=== PATIENT | female | born 2000 | race Caucasian/White ===

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

== ENCOUNTER 2018-01-16 19:03 | Emergency (ER) | payer OTHER ==
[2018-01-16] MEDS ORDERED: CEPHALEXIN 250 MG CAP ONE (19:52)
[2018-01-16] MEDS ORDERED: SMZ./TMP. 800/160 MG TABLET ONE (19:53)
[2018-01-16] MEDS ORDERED: TETANUS & DIPHTHERIA TOX,ADULT 0.5 ML VIAL ONE (19:53)
--- NOTE | 2018-01-16 20:24 | RAD REPORT ---
EXAM DESCRIPTION: RAD - Knee Right 3 View - 01/16/2018 8:09 pm CLINICAL HISTORY: PAIN COMPARISON: None FINDINGS: No bone or joint abnormality is detected.
--- NOTE | 2018-01-17 20:46 | EDPHYS ---
Physician Documentation [facility] Name: Awa Walker Age: 17 yrs Sex: Female : 2000 Arrival Date: 01/16/2018 Time: 19:08 Bed 14 Private MD: ED Physician Jaiden Mccoy HPI: 01/16 19:39 This 17 yrs old Female presents to ER via Ambulatory with complaints of Knee snw Injury. 19:39 The patient presents with an abrasion, a contusion, pain. The complaints affect the snw right knee. Context: The problem was sustained at home, resulted from the patient falling, down stairs, the patient can partially bear weight, the patient is able to ambulate. Onset: The symptoms/episode began/occurred suddenly, yesterday. Associated signs and symptoms: The patient has no apparent associated signs or symptoms. Severity of symptoms: At their worst the symptoms were moderate. The patient has not experienced similar symptoms in the past. It is unknown whether or not the patient has recently seen a physician. 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 - Social history:: Smoking status: Patient/guardian denies using tobacco. - Ebola Screening: : Patient negative for fever greater than or equal to 101.5 degrees Fahrenheit, and additional compatible Ebola Virus Disease symptoms Patient denies exposure to infectious person Patient denies travel to an Ebola-affected area in the 21 days before illness onset No symptoms or risks identified at this time. ROS: 19:38 Constitutional: Negative for fever, chills, and weight loss, Eyes: Negative for injury, snw pain, redness, and discharge, ENT: Negative for injury, pain, and discharge, Neck: Negative for injury, pain, and swelling, Cardiovascular: Negative for chest pain, palpitations, and edema, Respiratory: Negative for shortness of breath, cough, wheezing, and pleuritic chest pain, Abdomen/GI: Negative for abdominal pain, nausea, vomiting, diarrhea, and constipation, Back: Negative for injury and pain, : Negative for injury, bleeding, discharge, and swelling, Neuro: Negative for headache, weakness, numbness, tingling, and seizure. 19:38 MS/extremity: Positive for injury or acute deformity, abrasion, contusion, of the right knee. 19:38 Skin: Positive for abrasion(s), of the right knee. Exam: 19:37 Constitutional: This is a well developed, well nourished patient who is awake, alert, snw and in no acute distress. Head/Face: Normocephalic, atraumatic. Eyes: Pupils equal round and reactive to light, extra-ocular motions intact. Lids and lashes normal. Conjunctiva and sclera are non-icteric and not injected. Cornea within normal limits. Periorbital areas with no swelling, redness, or edema. ENT: Nares patent. No nasal discharge, no septal abnormalities noted. Tympanic membranes are normal and external auditory canals are clear. Oropharynx with no redness, swelling, or masses, exudates, or evidence of obstruction, uvula midline. Mucous membranes moist. Neck: Trachea midline, no thyromegaly or masses palpated, and no cervical lymphadenopathy. Supple, full range of motion without nuchal rigidity, or vertebral point tenderness. No Meningismus. Chest/axilla: Normal chest wall appearance and motion. Nontender with no deformity. No lesions are appreciated. Cardiovascular: Regular rate and rhythm with a normal S1 and S2. No gallops, murmurs, or rubs. Normal PMI, no JVD. No pulse deficits. Respiratory: Lungs have equal breath sounds bilaterally, clear to auscultation and percussion. No rales, rhonchi or wheezes noted. No increased work of breathing, no retractions or nasal flaring. Abdomen/GI: Soft, non-tender, with normal bowel sounds. No distension or tympany. No guarding or rebound. No evidence of tenderness throughout. Back: No spinal tenderness. No costovertebral tenderness. Full range of motion. Neuro: Awake and alert, GCS 15, oriented to person, place, time, and situation. Cranial nerves II-XII grossly intact. Motor strength 5/5 in all extremities. Sensory grossly intact. Cerebellar exam normal. Normal gait. Psych: Awake, alert, with orientation to person, place and time. Behavior, mood, and affect are within normal limits. 19:37 Musculoskeletal/extremity: Extremities: grossly normal except: noted in the right knee: abrasion, contusion, ROM: no acute changes, Severe pain noted. Compartment Syndrome exam of affected extremity: is normal. Vital Signs: 19:11 BP 139 / 82; Pulse 112; Resp 20; Temp 98.4; Pulse Ox 97% on R/A; Weight 78.02 kg; aj Height 5 ft. 4 in. (162.56 cm); 20:24 BP 120 / 72; Pulse 103; Resp 16; Pulse Ox 99% on R/A; aa1 19:11 Body Mass Index 29.52 (78.02 kg, 162.56 cm) aj MDM: 19:15 Patient medically screened. snw 20:36 Data reviewed: vital signs, nurses notes. Data interpreted: Pulse oximetry: on room air snw is 99 %. Interpretation: normal. Counseling: I had a detailed discussion with the patient and/or guardian regarding: the historical points, exam findings, and any diagnostic results supporting the discharge/admit diagnosis, radiology results, the need for outpatient follow up, to return to the emergency department if symptoms worsen or persist or if there are any questions or concerns that arise at home. Special discussion: I discussed in detail with the patient the higher chance of wound infection based on his presenting history. Based on the history and exam findings, there is no indication for further emergent testing or inpatient evaluation. I discussed with the patient/guardian the need to see the primary care provider for further evaluation of the symptoms. Medical screen evaluation completed. [facility] emergency medical condition absent. 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 Exp: aa1 03/10/2020. Lot #: [id number]. } Route: IM; Site: right deltoid; 20:44 Follow up: Response: No adverse reaction aa1 19:55 Drug: Bactrim (160 mg-800 mg (DS) 1 tablet Route: PO; aa1 20:44 Follow up: Response: No adverse reaction aa1 19:55 Drug: KeFLEX 500 mg Route: PO; aa1 20:43 Follow up: Response: No adverse reaction aa1 Disposition: 01/16/18 20:35 Discharged to Home. Impression: Abrasion, right knee, Cellulitis of right lower limb. - Condition is Stable. - Discharge Instructions: Abrasion, Cellulitis, Adult, Fall Prevention in the Home, Heat Therapy. - Prescriptions for Keflex 500 mg Oral Capsule - take 1 capsule by ORAL route every 8 hours for 10 days; 30 capsule. Diclofenac Sodium 75 mg Oral Tablet Sustained Release - take 1 tablet by ORAL route 2 times per day; 30 tablet. Bactrim DS 800- 160 mg Oral Tablet - take 1 tablet by ORAL route every 12 hours for 10 days; 20 tablet. - Work release form, Medication Reconciliation Form, Thank You Letter, Antibiotic Education, Prescription Opioid Use form. - Follow up: Emergency Department; When: As needed; Reason: Worsening of condition. Follow up: Private Physician; When: 2 - 3 days; Reason: Recheck today's complaints, Continuance of care, Re-evaluation by your physician. Addendum: 01/18/2018 10:22 Co-signature as Attending Physician, Jaiden Mccoy MD I agree with the assessment and c narvaez plan of care. Signatures: Dispatcher [employer] Angela Hernandez RN RN aa1 Eleni Burrell RN RN aj Anderson, Corey, MD MD cha Therrien, Shelly, CORRESPONDENCE TRANSCRIBER-C CORRESPONDENCE TRANSCRIBER-Csnw Corrections: (The following items were deleted from the chart) 01/16 20:46 20:35 01/16/2018 20:35 Discharged to Home. Impression: Abrasion, right knee; Cellulitis aa1 of right lower limb. Condition is Stable. Forms are Medication Reconciliation Form, Thank You Letter, Antibiotic Education, Prescription Opioid Use. Follow up: Emergency Department; When: As needed; Reason: Worsening of condition. Follow up: Private Physician; When: 2 - 3 days; Reason: Recheck today's complaints, Continuance of care, Re-evaluation by your physician. snw
--- NOTE | 2018-01-17 20:46 | ER ---
Nurse's Notes [facility] Name: Awa Walker Age: 17 yrs Sex: Female : 2000 Arrival Date: 01/16/2018 Time: 19:08 Bed 14 Private MD: Diagnosis: Abrasion, right knee;Cellulitis of right lower limb Presentation: 01/16 19:10 Presenting complaint: Patient states: Fell and skinned right knee last night on wooden aj stairs. Transition of care: patient was not received from another setting of care. Onset of symptoms was January 15, 2018. Risk Assessment: Do you want to hurt yourself or someone else? Patient reports no desire to harm self or others. Initial Sepsis Screen: Does the patient meet any 2 criteria? No. Patient's initial sepsis screen is negative. Does the patient have a suspected source of infection? No. Patient's initial sepsis screen is negative. Care prior to arrival: None. 19:10 Method Of Arrival: Ambulatory aj 19:10 Acuity: JILLIAN 4 aj Triage Assessment: 19:11 General: Appears in no apparent distress. comfortable, Behavior is calm, cooperative, aj appropriate for age. Pain: Complains of pain in right knee. Neuro: Level of Consciousness is awake, alert, obeys commands, Oriented to person, place, time, situation, Appropriate for age. Respiratory: Airway is patent Respiratory effort is even, unlabored, Respiratory pattern is regular, symmetrical. Derm: Skin is intact, is healthy with good turgor, Skin is pink, warm \T\ dry. normal. Musculoskeletal: Circulation, motion, and sensation intact. Range of motion: intact in all extremities. Injury Description: Abrasion sustained to right knee. 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 - Social history:: Smoking status: Patient/guardian denies using tobacco. - Ebola Screening: : Patient negative for fever greater than or equal to 101.5 degrees Fahrenheit, and additional compatible Ebola Virus Disease symptoms Patient denies exposure to infectious person Patient denies travel to an Ebola-affected area in the 21 days before illness onset No symptoms or risks identified at this time. Screenin:30 Abuse screen: Denies threats or abuse. Denies injuries from another. Nutritional aa1 screening: No deficits noted. Tuberculosis screening: No symptoms or risk factors identified. Fall Risk None identified. Assessment: 19:30 General: Appears in no apparent distress. comfortable, Behavior is calm, cooperative, aa1 appropriate for age. Pain: Complains of pain in right knee. Neuro: Level of Consciousness is awake, alert, obeys commands, Oriented to person, place, time, situation, Gait is steady. Respiratory: Airway is patent Respiratory effort is even, unlabored, Respiratory pattern is regular, symmetrical. GI: No signs and/or symptoms were reported involving the gastrointestinal system. : No signs and/or symptoms were reported regarding the genitourinary system. EENT: No signs and/or symptoms were reported regarding the EENT system. Derm: Skin is intact, is healthy with good turgor, Skin is pink, warm \T\ dry. Musculoskeletal: Circulation, motion, and sensation intact. Capillary refill < 3 seconds, Range of motion: intact in all extremities. Injury Description: Abrasion sustained to right knee is scabbed, was sustained 12-24 hours ago. 20:24 Reassessment: Patient appears in no apparent distress at this time. Patient and/or aa1 family updated on plan of care and expected duration. Pain level reassessed. Patient is alert, oriented x 3, equal unlabored respirations, skin warm/dry/pink. Awaiting xray results. 20:45 Reassessment: Patient appears in no apparent distress at this time. Patient is alert, aa1 oriented x 3, equal unlabored respirations, skin warm/dry/pink. Discussed d/c \T\ f/u instructions with pt; denies questions or concerns at this time. Vital Signs: 19:11 BP 139 / 82; Pulse 112; Resp 20; Temp 98.4; Pulse Ox 97% on R/A; Weight 78.02 kg; aj Height 5 ft. 4 in. (162.56 cm); 20:24 BP 120 / 72; Pulse 103; Resp 16; Pulse Ox 99% on R/A; aa1 19:11 Body Mass Index 29.52 (78.02 kg, 162.56 cm) ED Course: 19:08 Patient arrived in ED. es 19:11 Triage completed. aj 19:11 Arm band placed on left wrist. Patient placed in an exam room. aj 19:15 Cecily Cabrera FNP-C is PHCP. snw 19:30 Patient has correct armband on for positive identification. Bed in low position. Call aa1 light in reach. 19:47 Angela White, RN is Primary Nurse. aa1 20:09 Knee Right 3 View XRAY In Process Unspecified. EDMS 20:35 Jaiden Mccoy MD is Attending Physician. snw 20:45 No provider procedures requiring assistance completed. Patient did not have IV access aa1 during this emergency room visit. 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 Exp: aa1 03/10/2020. Lot #: [id number]. } Route: IM; Site: right deltoid; 20:44 Follow up: Response: No adverse reaction aa1 19:55 Drug: Bactrim (160 mg-800 mg (DS) 1 tablet Route: PO; aa1 20:44 Follow up: Response: No adverse reaction aa1 19:55 Drug: KeFLEX 500 mg Route: PO; aa1 20:43 Follow up: Response: No adverse reaction aa1 Outcome: 20:35 Discharge ordered by MD. snw 20:45 Discharged to home ambulatory. aa1 20:45 Condition: good 20:45 Discharge instructions given to patient, Instructed on discharge instructions, follow up and referral plans. medication usage, wound care, Demonstrated understanding of instructions, follow-up care, medications, wound care, Prescriptions given X 3. 20:46 Patient left the ED. aa1 Signatures: Dispatcher [employer] EDMS Angela White, RN RN aa1 Eleni Burrell RN RN Cecily Truong FNP-C FNP-Csnw Maddi Rouse
== END 2018-01-16 20:46 | disposition home or self-care (01) ==
LOC: ER 19:03
DX: L03.115 Cellulitis of right lower limb (principal); W10.9XXA Fall (on) (from) unspecified stairs and steps, initial encounter; Y93.9 Activity, unspecified; Y92.9 Unspecified place or not applicable; Z23 Encounter for immunization; Z88.8 Allergy status to other drugs, medicaments and biological substances
CPT/HCPCS: 90714; 99283

== ENCOUNTER 2019-02-08 01:30 | Emergency (ER) | payer OTHER, SELFPAY ==
[2019-02-08] MEDS ORDERED: IBUPROFEN 400 MG TAB ONE (02:02)
[2019-02-08] MEDS ORDERED: HYDROCODONE/APAP 5/325 MG TAB ONE (02:03)
--- NOTE | 2019-02-08 02:40 | ER ---
Nurse's Notes [facility] Name: Awa Walker Age: 18 yrs Sex: Female : 2000 Arrival Date: 02/08/2019 Time: 01:32 Bed 6 Private MD: Diagnosis: Sprain of ankle-left;Pain in left foot;Pain in left knee Presentation: 02/08 01:38 Presenting complaint: Patient states: she was walking outside in the dark and stepped aa1 in a hole and twisted her L ankle. Swelling noted. Transition of care: patient was not received from another setting of care. Onset of symptoms was February 08, 2019. Risk Assessment: Do you want to hurt yourself or someone else? Patient reports no desire to harm self or others. Initial Sepsis Screen: Does the patient meet any 2 criteria? No. Patient's initial sepsis screen is negative. Does the patient have a suspected source of infection? No. Patient's initial sepsis screen is negative. Care prior to arrival: None. 01:38 Method Of Arrival: Wheelchair aa1 01:38 Acuity: JILLIAN 3 aa1 Triage Assessment: 01:41 General: Appears in no apparent distress. uncomfortable, Behavior is cooperative, aa1 appropriate for age, anxious. 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 - Social history:: Smoking status: Patient/guardian denies using tobacco. - Ebola Screening: : No symptoms or risks identified at this time. Screenin:53 Abuse screen: Denies threats or abuse. Nutritional screening: No deficits noted. ea Tuberculosis screening: No symptoms or risk factors identified. 03:41 Fall Risk None identified. lp1 Assessment: 01:50 General: Appears uncomfortable, Behavior is appropriate for age. Pain: Complains of ea pain in left lateral ankle. Neuro: Level of Consciousness is awake, alert, obeys commands, Oriented to person, place, time, situation. Cardiovascular: Patient's skin is warm and dry. Respiratory: Airway is patent Respiratory effort is even, unlabored, Respiratory pattern is regular, symmetrical. Derm: Skin is pink, warm \T\ dry. Musculoskeletal: Swelling present in left lateral ankle. 03:30 Reassessment: Patient appears in no apparent distress at this time. Patient is alert, lp1 oriented x 3, equal unlabored respirations, skin warm/dry/pink. Vital Signs: 01:41 BP 137 / 95; Pulse 92; Resp 18; Temp 98.5; Pulse Ox 100% on R/A; Weight 78.02 kg; aa1 Height 5 ft. 4 in. (162.56 cm); Pain 7/10; 03:30 BP 137 / 77; Pulse 95; Resp 16; Pulse Ox 100% on R/A; lp1 01:41 Body Mass Index 29.52 (78.02 kg, 162.56 cm) aa1 ED Course: 01:32 Patient arrived in ED. cl3 01:33 Jaiden Patterson PA is PHCP. cp 01:33 Jaiden Mccoy MD is Attending Physician. cp 01:40 Triage completed. aa1 01:41 Arm band placed on right wrist. aa1 01:49 Tamara Aquino, ALPA is Primary Nurse. ea 01:54 Patient has correct armband on for positive identification. Bed in low position. Call ea light in reach. Side rails up X2. 02:10 Ankle Left 3 View XRAY In Process Unspecified. EDMS 02:37 Waldemar Sharma MD is Referral Physician. cp 02:50 XRAY Foot LEFT 3 View In Process Unspecified. EDMS 02:50 XRAY Knee LEFT 3 view In Process Unspecified. EDMS 03:23 Crutch training done. mt 03:30 Boot applied to left foot. lp1 03:41 No provider procedures requiring assistance completed. Patient did not have IV access lp1 during this emergency room visit. Administered Medications: 02:04 Drug: HYDROcodone-acetaminophen (5 mg-500 mg) 1 tabs Route: PO; ea 02:05 Follow up: Response: RASS: Restless (+1) ea 02:05 Drug: Ibuprofen 800 mg Route: PO; ea 03:30 Follow up: Response: No adverse reaction lp1 Outcome: 02:39 Discharge ordered by . cp 03:41 Discharged to home via wheelchair, with crutches, with friend. lp1 03:41 Condition: good 03:41 Discharge instructions given to patient, Instructed on discharge instructions, follow up and referral plans. medication usage, crutch walking, Demonstrated understanding of instructions, follow-up care, medications, crutch walking, Prescriptions given X 2. 03:43 Patient left the ED. lp1 Signatures: Dispatcher [employer] EDMS Angela Monteiro RN RN aa1 Marilu Gr RN RN lp1 Jaiden Patterson PA PA cp [place] Tamara West RN RN ea Lewis, Charde cl3 Corrections: (The following items were deleted from the chart) 03:43 03:30 Boot applied to right foot lp1 lp1
--- NOTE | 2019-02-08 02:41 | EDPHYS ---
Physician Documentation [facility] Name: Awa Walker Age: 18 yrs Sex: Female : 2000 Arrival Date: 02/08/2019 Time: 01:32 Bed 6 Private MD: ED Physician Jaiden Mccoy HPI: 02/08 01:45 This 18 yrs old Female presents to ER via Wheelchair with complaints of Ankle cp Injury, Ankle Swelling. 01:45 The patient presents with decreased range of motion, an injury, pain, that is acute, cp swelling, tenderness. The complaints affect the left ankle. 01:45 Onset: The symptoms/episode began/occurred just prior to arrival. Context: resulted cp from stepping in hole in ground. 01:45 Associated signs and symptoms: Pertinent negatives: calf tenderness, numbness. cp Modifying factors: the symptoms are aggravated by movement. 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 - Social history:: Smoking status: Patient/guardian denies using tobacco. - Ebola Screening: : No symptoms or risks identified at this time. ROS: 01:50 Constitutional: Negative for body aches, chills, fever, poor PO intake. cp 01:50 Cardiovascular: Negative for chest pain. cp 01:50 Respiratory: Negative for cough. 01:50 Abdomen/GI: Negative for abdominal pain. 01:50 MS/extremity: Positive for injury or acute deformity, decreased range of motion, pain, swelling, tenderness, of the left lateral ankle, Negative for paresthesias. 01:50 Neuro: Negative for headache. 01:50 All other systems are negative. Exam: 01:58 Constitutional: The patient appears in no acute distress, alert, awake, well developed, cp well nourished, uncomfortable. 01:58 Head/Face: Normocephalic, atraumatic. cp 01:58 Musculoskeletal/extremity: Extremities: grossly normal except: noted in the left lateral ankle: pain, swelling, tenderness, There is no evidence of deformity, ROM: limited passive range of motion due to pain, in the left ankle, Perfusion: the extremity is normally perfused throughout, Calf tenderness, is absent, Sensation intact. Weight bearing: is unable to bear weight, tenderness to palpation noted at proximal fibula and base of fifth left metatarsal, Achilles tendon palpated and intact. Vital Signs: 01:41 BP 137 / 95; Pulse 92; Resp 18; Temp 98.5; Pulse Ox 100% on R/A; Weight 78.02 kg; aa1 Height 5 ft. 4 in. (162.56 cm); Pain 7/10; 03:30 BP 137 / 77; Pulse 95; Resp 16; Pulse Ox 100% on R/A; lp1 01:41 Body Mass Index 29.52 (78.02 kg, 162.56 cm) aa1 Procedures: 03:25 Splinting: Splint applied to left ankle using walking boot. applied by nurse. Examined cp by me, post splint application: neurovascular intact, Patient tolerated well. MDM: 01:[address] [facility] 02:30 Data reviewed: vital signs, nurses notes, radiologic studies, plain films. Test cp interpretation: by ED physician or midlevel provider: xrays of left knee negative for fracture, xrays of left ankle negative for fracture and xrays of left foot negative for fracture. 02:30 Differential diagnosis: fracture, sprain, dislocation. Counseling: I had a detailed cp discussion with the patient and/or guardian regarding: the historical points, exam findings, and any diagnostic results supporting the discharge/admit diagnosis, radiology results, the need for outpatient follow up, a orthopedic surgeon, to return to the emergency department if symptoms worsen or persist or if there are any questions or concerns that arise at home. Response to treatment: the patient's symptoms have markedly improved after treatment, and as a result, I will discharge patient. 02/08 01:59 Order name: Ankle Left 3 View XRAY cp 02/08 01:59 Order name: XRAY Foot LEFT 3 View cp 02/08 02:01 Order name: XRAY Knee LEFT 3 view cp 02/08 02:37 Order name: Walking boot; Complete Time: 03:22 cp 02/08 02:37 Order name: Crutches; Complete Time: 03:22 cp Administered Medications: 02:04 Drug: HYDROcodone-acetaminophen (5 mg-500 mg) 1 tabs Route: PO; ea 02:05 Follow up: Response: RASS: Restless (+1) ea 02:05 Drug: Ibuprofen 800 mg Route: PO; ea 03:30 Follow up: Response: No adverse reaction lp1 Disposition: 03:45 Chart complete. cp 07:11 Co-signature as Attending Physician, Jaiden Mccoy MD I agree with the assessment and shayna plan of care. Disposition: 02/08/19 02:39 Discharged to Home. Impression: Sprain of ankle - left, Pain in left foot, Pain in left knee. - Condition is Stable. - Discharge Instructions: Ankle Sprain. - Prescriptions for Ibuprofen 800 mg Oral Tablet - take 1 tablet by ORAL route every 8 hours As needed take with food; 30 tablet. Tramadol 50 mg Oral Tablet - take 1 tablet by ORAL route every 8 hours as needed; 12 tablet. - Medication Reconciliation Form, Thank You Letter, Antibiotic Education, Prescription Opioid Use, Work release form form. - Follow up: Waldemar Sharma MD; When: 5 - 6 days; Reason: Recheck today's complaints. - Problem is new. - Symptoms have improved. Signatures: Dispatcher [employer] EDAngela Camarillo RN RN aa1 Jaiden Mccoy MD MD cha Pena, Laura, RN RN lp1 Jaiden Patterson PA PA cp Antunez, Elena, RN RN ea Corrections: (The following items were deleted from the chart) 03:43 02:39 02/08/2019 02:39 Discharged to Home. Impression: Sprain of ankle - left; Pain in lp1 left foot; Pain in left knee. Condition is Stable. Forms are Medication Reconciliation Form, Thank You Letter, Antibiotic Education, Prescription Opioid Use. Follow up: Wadlemar Sharma; When: 5 - 6 days; Reason: Recheck today's complaints. Problem is new. Symptoms have improved. cp 20:30 02/07 03:25 Splinting: Splint applied to left ankle using walking boot. applied by cp nurse. Examined by me, post splint application: neurovascular intact, Patient tolerated well, cp
--- NOTE | 2019-02-08 08:09 | RAD REPORT ---
EXAM DESCRIPTION: RAD - Ankle Left 3 View - 02/08/2019 2:13 am CLINICAL HISTORY: PAIN COMPARISON: No comparisons FINDINGS: Moderate soft tissue swelling is seen about the lateral malleolus. No fracture or dislocat ion.
--- NOTE | 2019-02-08 08:13 | RAD REPORT ---
EXAM DESCRIPTION: RAD - Foot Left 3 View - 02/08/2019 2:50 am CLINICAL HISTORY: PAIN COMPARISON: No comparisons FINDINGS: Soft tissue swelling is seen affecting the great toe. Tiny posterior calcaneal spur. No ac [place] fracture or dislocation evident.
--- NOTE | 2019-02-08 08:14 | RAD REPORT ---
EXAM DESCRIPTION: RAD - Knee Left 3 View - 02/08/2019 2:50 am CLINICAL HISTORY: PAIN COMPARISON: No comparisons FINDINGS: No fracture, dislocation or joint effusion.
== END 2019-02-08 03:43 | disposition home or self-care (01) ==
LOC: ER 01:30
DX: S93.402A Sprain of unspecified ligament of left ankle, initial encounter (principal); X50.1XXA Overexertion from prolonged static or awkward postures, initial encounter; Y93.01 Activity, walking, marching and hiking; Y92.9 Unspecified place or not applicable; Z88.8 Allergy status to other drugs, medicaments and biological substances
CPT/HCPCS: 99284

== ENCOUNTER 2019-07-06 14:28 | Emergency (ER) | payer SELFPAY ==
[2019-07-06 16:12] LABS: Urine Bacteria <20 /HPF (<20); Urine Culture Reflex Order NOT NEEDED; Urine RBC <5 /HPF (NONE SEEN)
[2019-07-06 16:13] LABS: Urine Mucus 1+ /HPF (NONE SEEN)
[2019-07-06 16:13] LABS: Urine Blood NEGATIVE (NEG); Urine Glucose NEGATIVE (NEG); Urine Protein NEGATIVE (NEG)
[2019-07-06] MEDS ORDERED: FAMOTIDINE 20 MG TAB ONE (16:45)
[2019-07-06] MEDS ORDERED: predniSONE 20 MG TAB ONE (16:45)
--- NOTE | 2019-07-06 17:13 | ER ---
Nurse's Notes [facility] Name: Awa Walker Age: 18 yrs Sex: Female : 2000 Arrival Date: 07/06/2019 Time: 14:31 Bed 19 Private MD: Diagnosis: Acute bronchitis Presentation: 07/06 14:37 Presenting complaint: Patient states: fever, sore throat, mid abd pain, n/v x 2 days. sv States she has been having a lot of personal problems recently as well. Transition of care: patient was not received from another setting of care. Onset of symptoms was July 04, 2019. Care prior to arrival: None. 14:37 Method Of Arrival: Ambulatory sv 14:37 Acuity: JILLIAN 2 sv 14:50 Risk Assessment: Do you want to hurt yourself or someone else? Patient reports no ca1 desire to harm self or others. Initial Sepsis Screen: Does the patient meet any 2 criteria? No. Patient's initial sepsis screen is negative. Does the patient have a suspected source of infection? No. Patient's initial sepsis screen is negative. 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 - Social history:: Smoking status: Patient/guardian denies using tobacco. - Ebola Screening: : Patient negative for fever greater than or equal to 101.5 degrees Fahrenheit, and additional compatible Ebola Virus Disease symptoms Patient denies exposure to infectious person Patient denies travel to an Ebola-affected area in the 21 days before illness onset No symptoms or risks identified at this time. Screenin:50 Abuse screen: Denies threats or abuse. Denies injuries from another. Nutritional ca1 screening: No deficits noted. Tuberculosis screening: No symptoms or risk factors identified. Fall Risk None identified. Assessment: 14:50 General: Appears in no apparent distress. comfortable, Behavior is calm, cooperative, ca1 appropriate for age. Pain: Complains of pain in umbilical area, right lower quadrant and left lower quadrant Pain currently is 6 out of 10 on a pain scale. Quality of pain is described as sharp, Pain began 1 day ago. Is intermittent. Neuro: Level of Consciousness is awake, alert, obeys commands, Oriented to person, place, time, situation. Cardiovascular: Heart tones S1 S2 present Capillary refill < 3 seconds Patient's skin is warm and dry. Respiratory: Airway is patent Respiratory effort is even, unlabored, Respiratory pattern is regular, symmetrical, Breath sounds are clear bilaterally. Respiratory: Reports cough that is since 3 days. GI: Abdomen is round non-distended, Bowel sounds present X 4 quads. Abd is soft X 4 quads Abdomen is tender to palpation in right lower quadrant and left lower quadrant. : No signs and/or symptoms were reported regarding the genitourinary system. EENT: No signs and/or symptoms were reported regarding the EENT system. Derm: Skin is intact, is healthy with good turgor, Skin is pink, warm \T\ dry. Musculoskeletal: Circulation, motion, and sensation intact. Capillary refill < 3 seconds. 15:58 Reassessment: Patient appears in no apparent distress at this time. Patient and/or ca1 family updated on plan of care and expected duration. Pain level reassessed. Patient is alert, oriented x 3, equal unlabored respirations, skin warm/dry/pink. 16:55 Reassessment: Patient appears in no apparent distress at this time. Patient is alert, ca1 oriented x 3, equal unlabored respirations, skin warm/dry/pink. Vital Signs: 14:39 BP 133 / 90; Pulse 135; Resp 20; Temp 99.2; Pulse Ox 100% ; Weight 79.38 kg; Height 5 sv ft. 4 in. (162.56 cm); 15:58 BP 105 / 66; Pulse 102; Resp 19 S; Temp 98.3(O); Pulse Ox 97% on R/A; ca1 16:55 BP 136 / 89; Pulse 99; Resp 17 S; Temp 98.2(O); Pulse Ox 100% ; ca1 14:39 Body Mass Index 30.04 (79.38 kg, 162.56 cm) sv ED Course: 14:31 Patient arrived in ED. as 14:38 [facility] Cabrera [facility]C [facility] snw 14:38 Jaiden Mccoy MD is Attending Physician. snw 14:38 Triage completed. sv 14:39 Arm band placed on. sv 14:50 Patient has correct armband on for positive identification. Bed in low position. Call ca1 light in reach. Side rails up X 1. Pulse ox on. NIBP on. 14:50 No provider procedures requiring assistance completed. ca1 14:51 Silvia Lentz, RN is Primary Nurse. ca1 15:28 Urine collected: clean catch specimen, clear, Amount Voided: 120mL Flu and/or RSV swab ca1 sent to lab. Strep swab sent to lab. 16:46 Chest Pa And Lat (2 Views) XRAY Sent. ca1 16:51 Chest Pa And Lat (2 Views) XRAY In Process Unspecified. EDMS 17:21 Patient did not have IV access during this emergency room visit. ca1 Administered Medications: 17:03 Drug: predniSONE 20 mg Route: PO; ca1 17:20 Follow up: Response: No adverse reaction ca1 17:04 Drug: Pepcid 20 mg Route: PO; ca1 17:20 Follow up: Response: No adverse reaction ca1 Outcome: 17:12 Discharge ordered by . snw 17:21 Discharged to home ambulatory, with family. ca1 17:21 Condition: stable 17:21 Discharge instructions given to patient, Instructed on discharge instructions, follow up and referral plans. medication usage, Demonstrated understanding of instructions, follow-up care, medications, Prescriptions given X 3. 17:22 Patient left the ED. ca1 Signatures: Dispatcher [employer] Smita Alcantara, RN RN Cecily Edward, DRY MILL OPERATOR-C DRY MILL OPERATOR-Csnw Licha Broderick as Silvia Lentz, RN RN ca1
--- NOTE | 2019-07-06 17:13 | EDPHYS ---
Physician Documentation [facility] Name: Awa Walker Age: 18 yrs Sex: Female : 2000 Arrival Date: 07/06/2019 Time: 14:31 Bed 19 Private MD: ED Physician Jaiden Mccoy HPI: 07/06 15:45 This 18 yrs old Female presents to ER via Ambulatory with complaints of snw Abdominal Pain, Sore Throat, Fever. 15:45 The patient presents with abdominal pain that is diffuse. Onset: The symptoms/episode snw began/occurred suddenly, 2 day(s) ago, and became persistent. The symptoms do not radiate. Associated signs and symptoms: Pertinent positives: fever, cough, sore throat. The symptoms are described as crampy. Severity of pain: At its worst the pain was moderate. It is unknown whether or not the patient has had similar symptoms in the past. It is unknown whether or not the patient has recently seen a physician. HARNESS BRUSHER: 14:50 LMP 07/03/2019 ca1 Historical: - Allergies: 14:39 Tamiflu; sv - PMHx: 14:39 GERD; sv - PSHx: 14:39 ear surgery; eye surgery; sv - Immunization history:: Adult Immunizations up to date, Flu vaccine is not up to date. - Social history:: Smoking status: Patient/guardian denies using tobacco. - Ebola Screening: : Patient negative for fever greater than or equal to 101.5 degrees Fahrenheit, and additional compatible Ebola Virus Disease symptoms Patient denies exposure to infectious person Patient denies travel to an Ebola-affected area in the 21 days before illness onset No symptoms or risks identified at this time. ROS: 15:44 Constitutional: Positive for fever, sore throat, malaise, no chills or weight loss, snw Eyes: Negative for injury, pain, redness, and discharge. 15:44 Neck: Negative for injury, pain, and swelling, Cardiovascular: Negative for chest pain, palpitations, and edema, Respiratory: Negative for shortness of breath, cough, wheezing, and pleuritic chest pain. 15:44 Back: Negative for injury and pain, : Negative for injury, bleeding, discharge, and swelling, MS/Extremity: Negative for injury and deformity, Skin: Negative for injury, rash, and discoloration, Neuro: Negative for headache, weakness, numbness, tingling, and seizure. 15:44 ENT: Positive for sore throat. 15:44 Abdomen/GI: Positive for nausea and vomiting. Exam: 15:41 Constitutional: This is a well developed, well nourished patient who is awake, alert, snw and in no acute distress. Head/Face: Normocephalic, atraumatic. Eyes: Pupils equal round and reactive to light, extra-ocular motions intact. Lids and lashes normal. Conjunctiva and sclera are non-icteric and not injected. Cornea within normal limits. Periorbital areas with no swelling, redness, or edema. ENT: Nares patent. No nasal discharge, no septal abnormalities noted. Tympanic membranes are normal and external auditory canals are clear. Oropharynx with no redness, swelling, or masses, exudates, or evidence of obstruction, uvula midline. Mucous membranes moist. Neck: Trachea midline, no thyromegaly or masses palpated, and no cervical lymphadenopathy. Supple, full range of motion without nuchal rigidity, or vertebral point tenderness. No Meningismus. Chest/axilla: Normal chest wall appearance and motion. Nontender with no deformity. No lesions are appreciated. Cardiovascular: Tachycardic rate and rhythm with a normal S1 and S2. No gallops, murmurs, or rubs. Normal PMI, no JVD. No pulse deficits. Respiratory: Lungs have equal breath sounds bilaterally, clear to auscultation and percussion. No rales, rhonchi or wheezes noted. No increased work of breathing, no retractions or nasal flaring. Abdomen/GI: Soft, non-tender, with normal bowel sounds. No distension or tympany. No guarding or rebound. No evidence of tenderness throughout. Back: No spinal tenderness. No costovertebral tenderness. Full range of motion. Skin: Warm, dry with normal turgor. Normal color with no rashes, no lesions, and no evidence of cellulitis. MS/ Extremity: Pulses equal, no cyanosis. Neurovascular intact. Full, normal range of motion. Neuro: Awake and alert, GCS 15, oriented to person, place, time, and situation. Cranial nerves II-XII grossly intact. Motor strength 5/5 in all extremities. Sensory grossly intact. Cerebellar exam normal. Normal gait. Psych: Awake, alert, with orientation to person, place and time. Behavior, mood, and affect are within normal limits. 15:41 Constitutional: The patient appears alert, uncomfortable. Vital Signs: 14:39 BP 133 / 90; Pulse 135; Resp 20; Temp 99.2; Pulse Ox 100% ; Weight 79.38 kg; Height 5 sv ft. 4 in. (162.56 cm); 15:58 BP 105 / 66; Pulse 102; Resp 19 S; Temp 98.3(O); Pulse Ox 97% on R/A; ca1 16:55 BP 136 / 89; Pulse 99; Resp 17 S; Temp 98.2(O); Pulse Ox 100% ; ca1 14:39 Body Mass Index 30.04 (79.38 kg, 162.56 cm) sv MDM: 14:43 Patient medically screened. shayna 17:19 Data reviewed: vital signs, nurses notes. Data interpreted: Pulse oximetry: on room air snw is 97 %. Interpretation: normal. Counseling: I had a detailed discussion with the patient and/or guardian regarding: the historical points, exam findings, and any diagnostic results supporting the discharge/admit diagnosis, lab results, radiology results, the need for outpatient follow up, to return to the emergency department if symptoms worsen or persist or if there are any questions or concerns that arise at home. Special discussion: Based on the history and exam findings, there is no indication for further emergent testing or inpatient evaluation. I discussed with the patient/guardian the need to see the primary care provider for further evaluation of the symptoms. 07/06 15:16 Order name: Flu; Complete Time: 16:27 snw 07/06 15:16 Order name: Strep; Complete Time: 16:09 snw 07/06 15:16 Order name: Urine Culture snw 07/06 15:16 Order name: Urine Microscopic Only; Complete Time: 16:14 snw 07/06 15:35 Order name: Urine Dipstick--Ancillary (enter results); Complete Time: 16:14 bd 07/06 15:35 Order name: Urine --Ancillary (enter results); Complete Time: 16:14 bd 07/06 15:16 Order name: Urine Test (obtain specimen); Complete Time: 15:34 snw 07/06 15:16 Order name: Urine Dipstick-Ancillary (obtain specimen); Complete Time: 15:34 snw 07/06 16:09 Order name: Throat Culture EDIA 07/06 16:15 Order name: Chest Pa And Lat (2 Views) XRAY; Complete Time: 17:20 snw Administered Medications: 17:03 Drug: predniSONE 20 mg Route: PO; ca1 17:20 Follow up: Response: No adverse reaction ca1 17:04 Drug: Pepcid 20 mg Route: PO; ca1 17:20 Follow up: Response: No adverse reaction ca1 Disposition: 07/07 06:13 Co-signature as Attending Physician, Jaiden Mccoy MD I agree with the assessment and [facility] plan of care. Disposition: 07/06/19 17:12 Discharged to Home. Impression: Acute bronchitis. - Condition is Stable. - Discharge Instructions: Acute Bronchitis, Adult, Fever, Adult, Cough, Adult, Rehydration, Adult. - Prescriptions for Tessalon Perles 100 mg Oral Capsule - take 1 capsule by ORAL route every 8 hours As needed; 15 capsule. Prednisone 20 mg Oral Tablet - take 2 tablet by ORAL route once daily for 5 days; 10 tablet. Pepcid 20 mg Oral Tablet - take 1 tablet by ORAL route once daily for 10 days; 10 tablet. - Work release form, Medication Reconciliation Form, Thank You Letter, Antibiotic Education, Prescription Opioid Use form. - Follow up: Emergency Department; When: As needed; Reason: Worsening of condition. Follow up: Private Physician; When: 2 - 3 days; Reason: Recheck today's complaints, Continuance of care, Re-evaluation by your physician. Signatures: Dispatcher [employer] [facility] Smita Garrison RN RN sv Anderson, Corey, MD MD cha Therrien, Shelly, SOCIAL MEDIA DEVELOPER-C SOCIAL MEDIA DEVELOPER-Csnw Silvia Lentz RN RN ca1 Corrections: (The following items were deleted from the chart) 07/06 17:22 17:12 07/06/2019 17:12 Discharged to Home. Impression: Acute bronchitis. Condition is ca1 Stable. Discharge Instructions: Acute Bronchitis, Adult, Fever, Adult, Cough, Adult, Rehydration, Adult. Prescriptions for Tessalon Perles 100 mg Oral Capsule - take 1 capsule by ORAL route every 8 hours As needed; 15 capsule, Prednisone 20 mg Oral Tablet - take 2 tablet by ORAL route once daily for 5 days; 10 tablet, Pepcid 20 mg Oral Tablet - take 1 tablet by ORAL route once daily for 10 days; 10 tablet. and Forms are Work release form, Medication Reconciliation Form, Thank You Letter, Antibiotic Education, Prescription Opioid Use. Follow up: Emergency Department; When: As needed; Reason: Worsening of condition. Follow up: Private Physician; When: 2 - 3 days; Reason: Recheck today's complaints, Continuance of care, Re-evaluation by your physician. snw
--- NOTE | 2019-07-06 17:16 | RAD REPORT ---
EXAM DESCRIPTION: [place] And [place] (2 Views)07/06/2019 4:50 pm CLINICAL HISTORY: Cough COMPARISON: None FINDINGS: The lungs appear clear of acute infiltrate. The heart is normal size IMPRESSION: No acute abnormalities displayed
[2019-07-06 17:48] VITALS: BP 105/66; TEMP 98.3; O2SAT 97
== END 2019-07-06 17:22 | disposition home or self-care (01) ==
LOC: ER 14:28
DX: J20.9 Acute bronchitis, unspecified (principal); Z88.7 Allergy status to serum and vaccine
CPT/HCPCS: 71046; 81003; 81015; 81025; 87070; 87081; 87086; 87088; 87804; 99284; J7512

== ENCOUNTER 2019-09-26 11:32 | Emergency (ER) | payer SELFPAY ==
[2019-09-26 12:51] LABS: Basophils % 0.5 % (0-1.3); Hematocrit 28.9 % (36.0-45.0); Lymphocytes % 14.5 % (15.3-44.8); MPV 8.6 fL (7.6-11.3); RBC Red Blood Cell Count 4.25 M/uL (3.86-4.86)
[2019-09-26] MEDS ORDERED: NA CHLORIDE 0.9% 1,000 ML ONE (13:08)
[2019-09-26 13:10] LABS: ALT/SGPT 13 U/L (12-78); AST/SGOT 7 U/L (15-37); Albumin 3.5 g/dL (3.4-5.0); Alkaline Phosphatase 68 U/L (45-117); BUN Blood Urea Nitrogen 8 mg/dL (7-18); Bicarbonate 26 mmol/L (21-32); Bilirubin Direct < 0.1 mg/dL (0-0.2); Bilirubin Total 0.3 mg/dL (0.2-1.0); Glucose Level 95 mg/dL (74-106); Lipase 62 U/L (73-393); Protein, Total 7.1 g/dL (6.4-8.2); Sodium Level 140 mmol/L (136-145)
[2019-09-26 13:13] LABS: Urine Blood NEGATIVE (NEG); Urine Glucose NEGATIVE (NEG); Urine Protein NEGATIVE (NEG); Urine Specific Gravity 1.025 (1.005-1.030); Urine pH 7.5 (5.0-7.0)
[2019-09-26 13:21] LABS: Urine Bacteria <20 /HPF (<20); Urine Culture Reflex Order NOT NEEDED; Urine RBC <5 /HPF (NONE SEEN)
--- NOTE | 2019-09-26 14:09 | RAD REPORT ---
EXAM DESCRIPTION: CT - Abdomen Pelvis W Contrast - 09/26/2019 1:42 pm CLINICAL HISTORY: Abd pain;Constipation COMPARISON: No comparisons TECHNIQUE: Biphasic, helical CT imaging of the abdomen and pelvis was performed following 100 ml non -ionic IV contrast. No oral contrast given. All CT scans are performed using dose optimization technique as appropriate and may include automated exposure control or mA/KV adjustment according to patient size. FINDINGS: No suspicious findings in the lung bases. No focal abnormalities of the liver, spleen or pancreas. No pancreatitis findings. Borderline to mild splenomegaly is present. Gallbladder and biliary tree are also without suspicious finding. Symmetric renal function is seen with no hydronephrosis or suspicious renal mass. No pyelonephritis o r acute parenchymal process. Urinary bladder is partially filled. No abnormal wall thickening, edema or enhancement. No bladder stone or intraluminal abnormality. No adrenal abnormalities. Uterus has an arcuate configuration. No myometrial mass identifiable. Both ovaries are identified wit hout a dominant or worrisome solid or cystic mass. Stomach is mostly decompressed. No wall thickening or mass evident. Small bowel loops are not abnorma lly dilated. There are few small bowel loops showing mildly prominent kyle in the distal ileum. No i leocecal valve abnormality. No appendicitis findings. Cecum and ascending colon are mostly decompress ed. Moderate stool volume is seen from the hepatic flexure through the proximal sigmoid colon. No obs tructing mass or wall thickening. No free air or pneumatosis. Fluid collecting in the cul de sac is within limits of normal. Small mese nteric lymph nodes are present. There is nonspecific stranding in the fat along the anterior floor th e pelvis in the bilateral lower colic gutters. Minimal stranding in the fatty tissues adjacent to the transverse colon. No mass or bulky lymphadenopathy. No hernia changes seen. No suspicious bony findings. IMPRESSION: No pyelonephritis findings are identifiable. No measurable degree of cystitis seen on CT imaging. No appendicitis or surgically emergent finding. Stool volume is not abnormally large. Patient has a few prominent small bowel loops, small mesenteric lymph nodes an mild areas of strandin g in the peritoneal fat. These would favor a nonspecific enteritis. No acute BALL SHAGGER process seen. Borderline to mild splenomegaly.
[2019-09-26 14:28] LABS: Urine White Blood Cell Casts OK
[2019-09-26 14:29] LABS: Anisocytosis 1+; Blood Morphology Comment NOTED (NOT SEEN); Platelet Estimate ADEQ; Poikilocytosis 2+
--- NOTE | 2019-09-26 15:17 | ER ---
Nurse's Notes [facility] Name: Awa Walker Age: 18 yrs Sex: Female : 2000 Arrival Date: 09/26/2019 Time: 11:36 Bed 13 Private MD: Diagnosis: Constipation Presentation: 09/25 11:41 Chief complaint: Patient states: "for the past 3 weeks I haven't had a good sized bowel aa5 movement and I've been taking stool softeners and the chocolate laxative but it's only making me have very small bowel movements". pt c/o lower abd pain. Coronavirus screen: Proceed with normal triage. Ebola Screen: Patient negative for fever greater than or equal to 101.5 degrees Fahrenheit, and additional compatible Ebola Virus Disease symptoms. Initial Sepsis Screen: Does the patient meet any 2 criteria? No. Patient's initial sepsis screen is negative. Does the patient have a suspected source of infection? No. Patient's initial sepsis screen is negative. Risk Assessment: Do you want to hurt yourself or someone else? Patient reports no desire to harm self or others. Onset of symptoms was August 2019. 11:41 Method Of Arrival: Ambulatory aa5 11:41 Acuity: JILLIAN 3 aa5 Historical: - Allergies: 11:43 Tamiflu; aa5 - Home Meds: 11:43 Zantac 150 mg Oral tab 1 tab once daily [Active]; Zyrtec Oral [Active]; Ranitidine Oral aa5 [Active]; - PMHx: 11:43 GERD; aa5 - PSHx: 11:43 ear surgery; eye surgery; aa5 - Immunization history:: Flu vaccine is not up to date. - Social history:: Smoking status: Patient denies any tobacco usage or history of. Screenin:50 Abuse screen: Denies threats or abuse. Denies injuries from another. Nutritional ph screening: No deficits noted. Tuberculosis screening: No symptoms or risk factors identified. Fall Risk None identified. Assessment: 12:30 General: Appears in no apparent distress. comfortable, well groomed, Behavior is calm, ph cooperative, appropriate for age, Denies fever, chills. Pain: Complains of pain in umbilical area. Neuro: Level of Consciousness is awake, alert, obeys commands, Oriented to person, place, time, situation. Cardiovascular: Capillary refill < 3 seconds in bilateral fingers Patient's skin is warm and dry. Respiratory: Airway is patent Respiratory effort is even, unlabored. GI: Abdomen is round non-distended, Bowel sounds present X 4 quads. Abd is soft X 4 quads Reports lower abdominal pain, upper abdominal pain, nausea, vomiting. : No signs and/or symptoms were reported regarding the genitourinary system. Derm: Skin is intact, is healthy with good turgor, Skin is pink, warm \\T\\ dry. Musculoskeletal: Circulation, motion, and sensation intact. Range of motion: intact in all extremities. 13:50 Reassessment: Patient appears in no apparent distress at this time. Patient and/or ph family updated on plan of care and expected duration. Pain level reassessed. Patient is alert, oriented x 3, equal unlabored respirations, skin warm/dry/pink. 15:00 Reassessment: Patient appears in no apparent distress at this time. Patient and/or ph family updated on plan of care and expected duration. Pain level reassessed. Patient is alert, oriented x 3, equal unlabored respirations, skin warm/dry/pink. Vital Signs: 11:43 BP 132 / 80; Pulse 108; Resp 18 S; Temp 98.0(TE); Pulse Ox 99% on R/A; Weight 79.38 kg aa5 (R); Height 5 ft. 4 in. (162.56 cm) (R); Pain 5/10; 13:30 BP 122 / 76; Pulse 94; Resp 18; Pulse Ox 98% on R/A; ph 14:30 BP 117 / 78; Pulse 87; Resp 18; Temp 97.8; Pulse Ox 99% on R/A; ph 11:43 Body Mass Index 30.04 (79.38 kg, 162.56 cm) aa5 ED Course: 11:36 Patient arrived in ED. am2 11:42 Triage completed. aa5 11:42 Arm band placed on. aa5 11:45 Ricky Marcano NP is PHCP. pm1 11:45 Jaiden Mccoy MD is Attending Physician. pm1 12:39 Initial lab(s) drawn, by ga, sent to lab. Inserted saline lock: 20 gauge in right dh3 antecubital area, using aseptic technique. Blood collected. 12:55 Urine collected: clean catch specimen, clear, sediment noted. [facility] 13:02 Cyndi Bragg, RN is Primary Nurse. 13:43 CT Abd/Pelvis - IV Contrast Only In Process Unspecified. EDMS 13:50 Patient has correct armband on for positive identification. Bed in low position. Call ph light in reach. Side rails up X 1. Pulse ox on. NIBP on. Door closed. Noise minimized. Warm blanket given. 13:50 No provider procedures requiring assistance completed. ph 15:40 IV discontinued, intact, bleeding controlled, No redness/swelling at site. Pressure ph dressing applied. Administered Medications: 13:15 Drug: NS 0.9% 1000 ml Route: IV; Rate: 1000 ml; Site: right antecubital; ph 14:45 Follow up: Response: No adverse reaction; IV Status: Completed infusion ph Outcome: 15:17 Discharge ordered by . pm1 15:45 Patient left the ED. ph 15:45 Discharged to home ambulatory. ph 15:45 Condition: good 15:45 Discharge instructions given to patient, Instructed on discharge instructions, follow up and referral plans. medication usage, Demonstrated understanding of instructions, follow-up care, medications, Prescriptions given X 3. Signatures: Dispatcher [employer] EDDE Divine Jackson, RN RN [email or web address] Aylin Ahuja RN RN Ricky Marcano, ADWOA MEAL TEMPERER pm1 Eleni Kuhn 2 Carla Groves [facility] Cyndi Bragg, RN RN
--- NOTE | 2019-09-26 15:18 | EDPHYS ---
Physician Documentation [facility] Name: Awa Walker Age: 18 yrs Sex: Female : 2000 Arrival Date: 09/26/2019 Time: 11:36 Bed 13 Private MD: ED Physician Jaiden Mccoy HPI: 09/25 12:06 This 18 yrs old Female presents to ER via Ambulatory with complaints of pm1 Abdominal Pain, Constipation. 12:06 The patient presents with abdominal pain that is diffuse. Onset: The symptoms/episode pm1 began/occurred 3 week(s) ago. The symptoms do not radiate. Associated signs and symptoms: Pertinent positives: constipation, Pertinent negatives: nausea and vomiting, chest pain, diarrhea, dysuria, fever, shortness of breath. The symptoms are described as crampy. Modifying factors: The symptoms are alleviated by nothing, the symptoms are aggravated by nothing. Severity of pain: in the emergency department the pain is actually worse. The patient has experienced a previous episode, many years ago. The patient has not recently seen a physician. Reports normal bowel pattern is every other day. Currently just having pebble like bowel movements daily. Historical: - Allergies: 11:43 Tamiflu; aa5 - Home Meds: 11:43 Zantac 150 mg Oral tab 1 tab once daily [Active]; Zyrtec Oral [Active]; Ranitidine Oral aa5 [Active]; - PMHx: 11:43 GERD; aa5 - PSHx: 11:43 ear surgery; eye surgery; aa5 - Immunization history:: Flu vaccine is not up to date. - Social history:: Smoking status: Patient denies any tobacco usage or history of. ROS: 12:06 Constitutional: Negative for fever, chills, and weight loss, Cardiovascular: Negative pm1 for chest pain, palpitations, and edema, Respiratory: Negative for shortness of breath, cough, wheezing, and pleuritic chest pain. 12:06 Back: Negative for injury and pain, : Negative for injury, bleeding, discharge, and swelling, MS/Extremity: Negative for injury and deformity, Skin: Negative for injury, rash, and discoloration, Neuro: Negative for headache, weakness, numbness, tingling, and seizure. 12:06 Abdomen/GI: Positive for abdominal pain, constipation, Negative for nausea, vomiting, and diarrhea. Exam: 12:06 Constitutional: This is a well developed, well nourished patient who is awake, alert, pm1 and in no acute distress. Head/Face: Normocephalic, atraumatic. Chest/axilla: Normal chest wall appearance and motion. Nontender with no deformity. No lesions are appreciated. Cardiovascular: Regular rate and rhythm with a normal S1 and S2. No gallops, murmurs, or rubs. Normal PMI, no JVD. No pulse deficits. Respiratory: Lungs have equal breath sounds bilaterally, clear to auscultation and percussion. No rales, rhonchi or wheezes noted. No increased work of breathing, no retractions or nasal flaring. 12:06 Back: No spinal tenderness. No costovertebral tenderness. Full range of motion. Skin: Warm, dry with normal turgor. Normal color with no rashes, no lesions, and no evidence of cellulitis. MS/ Extremity: Pulses equal, no cyanosis. Neurovascular intact. Full, normal range of motion. 12:06 Abdomen/GI: Inspection: obese Bowel sounds: normal, in all quadrants, Palpation: abdomen is soft and non-tender, in all quadrants, mass, is not appreciated, rebound tenderness, is not appreciated. 12:06 Neuro: Exam negative for acute changes, Orientation: is normal, Motor: is normal, moves all fours. Vital Signs: 11:43 BP 132 / 80; Pulse 108; Resp 18 S; Temp 98.0(TE); Pulse Ox 99% on R/A; Weight 79.38 kg aa5 (R); Height 5 ft. 4 in. (162.56 cm) (R); Pain 5/10; 13:30 BP 122 / 76; Pulse 94; Resp 18; Pulse Ox 98% on R/A; ph 14:30 BP 117 / 78; Pulse 87; Resp 18; Temp 97.8; Pulse Ox 99% on R/A; ph 11:43 Body Mass Index 30.04 (79.38 kg, 162.56 cm) aa5 MDM: 11:45 Patient medically screened. pm1 15:16 Data reviewed: vital signs. Data interpreted: Pulse oximetry: on room air is 98 %. pm1 Interpretation: normal. Counseling: I had a detailed discussion with the patient and/or guardian regarding: the historical points, exam findings, and any diagnostic results supporting the discharge/admit diagnosis, lab results, radiology results, the need for outpatient follow up, to return to the emergency department if symptoms worsen or persist or if there are any questions or concerns that arise at home. 09/25 11:50 Order name: Basic Metabolic Panel; Complete Time: 13:18 pm1 09/25 11:50 Order name: CBC with Diff; Complete Time: 14:30 pm1 09/25 11:50 Order name: Creatinine for Radiology; Complete Time: 13:18 pm1 09/25 11:50 Order name: Hepatic Function; Complete Time: 13:18 pm1 09/25 11:50 Order name: Lipase; Complete Time: 13:18 pm1 09/25 12:59 Order name: Urine Microscopic Only; Complete Time: 13:21 pm1 09/25 11:50 Order name: IV Saline Lock; Complete Time: 12:45 pm1 09/25 11:50 Order name: Labs collected and sent; Complete Time: 12:45 pm1 09/25 11:50 Order name: Urine Dipstick-Ancillary (obtain specimen); Complete Time: 13:00 pm1 09/25 11:50 Order name: CT Abd/Pelvis - IV Contrast Only; Complete Time: 14:12 pm1 09/25 13:03 Order name: Urine Dipstick--Ancillary (enter results); Complete Time: 13:18 bd 09/25 13:03 Order name: Urine --Ancillary (enter results); Complete Time: 13:18 bd 09/25 14:29 Order name: CBC Smear Scan; Complete Time: 14:30 EDMS 09/25 11:50 Order name: Urine Test (obtain specimen); Complete Time: 12:59 pm1 Administered Medications: 13:15 Drug: NS 0.9% 1000 ml Route: IV; Rate: 1000 ml; Site: right antecubital; ph 14:45 Follow up: Response: No adverse reaction; IV Status: Completed infusion ph Disposition: 09/26 07:38 Co-signature as Attending Physician, Jaiden GORDON I agree with the assessment and shayna plan of care. Disposition: 09/26/19 15:17 Discharged to Home. Impression: Constipation. - Condition is Stable. - Discharge Instructions: Constipation, Adult. - Prescriptions for Lactulose 10 gram/15 mL Oral Solution - take 30 milliliter by ORAL route once daily; 300 milliliter. Flagyl 500 mg Oral Tablet - take 1 tablet by ORAL route every 8 hours for 10 days; 30 tablet. Bentyl 20 mg Oral Tablet - take 1 tablet by ORAL route every 6 hours As needed; 20 tablet. - Work release form, Medication Reconciliation Form, Thank You Letter, Antibiotic Education, Prescription Opioid Use form. - Follow up: Emergency Department; When: As needed; Reason: Worsening of condition. Follow up: Private Physician; When: 2 - 3 days; Reason: Recheck today's complaints, Continuance of care, Re-evaluation by your physician. - Problem is new. - Symptoms have improved. Signatures: Dispatcher [employer] EDMS Jaiden Mccoy MD MD cha Calderon, Audri, RN RN aa5 Aylin Ahuja RN RN ph Ricky Marcano, ADWOA STAFF ASSISTANT pm1 Corrections: (The following items were deleted from the chart) 09/25 15:45 15:17 09/26/2019 15:17 Discharged to Home. Impression: Constipation. Condition is ph Stable. Forms are Medication Reconciliation Form, Thank You Letter, Antibiotic Education, Prescription Opioid Use. Follow up: Emergency Department; When: As needed; Reason: Worsening of condition. Follow up: Private Physician; When: 2 - 3 days; Reason: Recheck today's complaints, Continuance of care, Re-evaluation by your physician. Problem is new. Symptoms have improved. pm1
== END 2019-09-26 15:45 | disposition home or self-care (01) ==
LOC: ER 11:32
DX: K59.00 Constipation, unspecified (principal); K21.9 Gastro-esophageal reflux disease without esophagitis; Z88.8 Allergy status to other drugs, medicaments and biological substances
CPT/HCPCS: 36415; 74177; 80048; 80076; 81003; 81015; 81025; 83690; 85025; 96360; 99284; J7030; Q9967

== ENCOUNTER 2019-10-02 09:38 | Emergency (ER) | payer SELFPAY ==
[2019-10-02 10:10] LABS: Absolute Lymphocytes (CBC) 1.4 K/uL (0.7-4.9); Basophils % 0.9 % (0-1.3); Hematocrit 30.1 % (36.0-45.0); Lymphocytes % 21.4 % (15.3-44.8); MPV 8.5 fL (7.6-11.3); RBC Red Blood Cell Count 4.43 M/uL (3.86-4.86)
[2019-10-02 10:25] LABS: ALT/SGPT 13 U/L (12-78); AST/SGOT 11 U/L (15-37); Albumin 3.7 g/dL (3.4-5.0); Alkaline Phosphatase 63 U/L (45-117); BUN Blood Urea Nitrogen 11 mg/dL (7-18); Bicarbonate 26 mmol/L (21-32); Bilirubin Direct < 0.1 mg/dL (0-0.2); Bilirubin Total 0.2 mg/dL (0.2-1.0); Glucose Level 108 mg/dL (74-106); Lipase 85 U/L (73-393); Potassium 3.8 mmol/L (3.5-5.1); Protein, Total 7.6 g/dL (6.4-8.2); Sodium Level 141 mmol/L (136-145)
[2019-10-02 10:40] LABS: Blood Morphology Comment NOTED (NOT SEEN); Hypochromasia 1+; Platelet Estimate ADEQ
--- NOTE | 2019-10-02 10:54 | RAD REPORT ---
EXAM DESCRIPTION: US - Abdomen Exam Limited - 10/02/2019 10:27 am CLINICAL HISTORY: Abdominal pain. COMPARISON: None. FINDINGS: The gallbladder wall is not thickened. A gallstone is not seen. The biliary tree is normal caliber. IMPRESSION: Unremarkable gallbladder ultrasound.
--- NOTE | 2019-10-02 11:02 | EDPHYS ---
Physician Documentation [facility] Name: Awa Walker Age: 18 yrs Sex: Female : 2000 Arrival Date: 10/02/2019 Time: 09:41 Bed 7 Private MD: ED Physician Estevan Landon HPI: 10/01 11:02 This 18 yrs old Female presents to ER via Ambulatory with complaints of kb Abdominal Pain. 11:02 The patient presents with abdominal pain in the upper abdomen. Onset: The kb symptoms/episode began/occurred 3 day(s) ago. The symptoms radiate to right back. Associated signs and symptoms: Pertinent positives: nausea, Pertinent negatives: constipation, diarrhea, dysuria, fever, vomiting. The symptoms are described as constant. Modifying factors: The symptoms are alleviated by nothing, the symptoms are aggravated by breathing deeply, movement, pressure. Severity of pain: At its worst the pain was moderate in the emergency department the pain is unchanged. The patient has not experienced similar symptoms in the past. The patient has been recently seen at the [facility] Emergency Department, this week, for similar complaints. Pt reports she was seen on Thursday for abd pain and told she had an enlarged spleen. Started having RUQ pain 2-3 days ago with nausea. Denies fever, vomiting. . Historical: - Allergies: 10:04 Tamiflu; ss - PMHx: 10:04 GERD; ss - PSHx: 10:04 ear surgery; ss - Immunization history:: Adult Immunizations up to date. - Social history:: Smoking status: Patient denies any tobacco usage or history of. ROS: 11:01 Constitutional: Negative for fever, chills, and weight loss, Neck: Negative for injury, kb pain, and swelling, Cardiovascular: Negative for chest pain, palpitations, and edema, Respiratory: Negative for shortness of breath, cough, wheezing, and pleuritic chest pain, Back: Negative for injury and pain, MS/Extremity: Negative for injury and deformity, Skin: Negative for injury, rash, and discoloration, Neuro: Negative for headache, weakness, numbness, tingling, and seizure. 11:01 Abdomen/GI: Positive for abdominal pain, nausea, Negative for vomiting, diarrhea, constipation. Exam: 11:01 Constitutional: This is a well developed, well nourished patient who is awake, alert, kb and in no acute distress. Head/Face: Normocephalic, atraumatic. ENT: Nares patent. No nasal discharge, no septal abnormalities noted. Tympanic membranes are normal and external auditory canals are clear. Oropharynx with no redness, swelling, or masses, exudates, or evidence of obstruction, uvula midline. Mucous membranes moist. Neck: Trachea midline, no thyromegaly or masses palpated, and no cervical lymphadenopathy. Supple, full range of motion without nuchal rigidity, or vertebral point tenderness. No Meningismus. Chest/axilla: Normal chest wall appearance and motion. Nontender with no deformity. No lesions are appreciated. Cardiovascular: Regular rate and rhythm with a normal S1 and S2. No gallops, murmurs, or rubs. Normal PMI, no JVD. No pulse deficits. Respiratory: Lungs have equal breath sounds bilaterally, clear to auscultation and percussion. No rales, rhonchi or wheezes noted. No increased work of breathing, no retractions or nasal flaring. Back: No spinal tenderness. No costovertebral tenderness. Full range of motion. Skin: Warm, dry with normal turgor. Normal color with no rashes, no lesions, and no evidence of cellulitis. MS/ Extremity: Pulses equal, no cyanosis. Neurovascular intact. Full, normal range of motion. Neuro: Awake and alert, GCS 15, oriented to person, place, time, and situation. Cranial nerves II-XII grossly intact. Motor strength 5/5 in all extremities. Sensory grossly intact. Cerebellar exam normal. Normal gait. 11:01 Abdomen/GI: Inspection: abdomen appears normal, Bowel sounds: normal, in all quadrants, Palpation: soft, in all quadrants, mild abdominal tenderness, in the left upper quadrant, moderate abdominal tenderness, in the right upper quadrant. Vital Signs: 09:41 BP 129 / 93; Pulse 89; Resp 15; Temp 97.6(TE); Pulse Ox 100% on R/A; Weight 77.11 kg; ss Height 5 ft. 4 in. (162.56 cm); Pain 0/10; 10:34 BP 135 / 90; Pulse 87; Resp 16; Pulse Ox 100% ; sv 09:41 Body Mass Index 29.18 (77.11 kg, 162.56 cm) ss MDM: 09:43 Patient medically screened. kb 11:01 Data reviewed: vital signs, nurses notes. Data interpreted: Pulse oximetry: on room air kb is 100 %. Interpretation: normal. 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 10/01 09:46 Order name: Basic Metabolic Panel; Complete Time: 10:38 kb 10/01 09:46 Order name: CBC with Diff; Complete Time: 10:41 kb 10/01 09:46 Order name: Hepatic Function; Complete Time: 10:38 kb 10/01 09:46 Order name: Lipase; Complete Time: 10:38 kb 10/01 09:51 Order name: Bureau Screen Profile; Complete Time: 10:38 kb 10/01 10:01 Order name: Urine Dipstick--Ancillary (enter results) bd 10/01 09:46 Order name: IV Saline Lock; Complete Time: 10:07 kb 10/01 09:46 Order name: Labs collected and sent; Complete Time: 10:06 kb 10/01 09:51 Order name: US Abdomen Limited; Complete Time: 10:55 kb 10/01 10:01 Order name: Urine --Ancillary (enter results) bd 10/01 10:40 Order name: Manual Differential; Complete Time: 10:41 EDMS Administered Medications: 11:03 Drug: TORadol - Ketorolac 15 mg Route: IVP; Site: right antecubital; em 11:12 Follow up: Response: No adverse reaction em Disposition: 17:24 Co-signature as Attending Physician, Estevan Landon MD. ma2 Disposition: 10/02/19 11:00 Discharged to Home. Impression: Upper abdominal pain, unspecified. - Condition is Stable. - Discharge Instructions: Abdominal Pain, Adult, [id number]. - Work release form, Medication Reconciliation Form, Thank You Letter, Antibiotic Education, Prescription Opioid Use form. - Follow up: Emergency Department; When: As needed; Reason: Worsening of condition. Follow up: Private Physician; When: 2 - 3 days; Reason: Recheck today's complaints, Continuance of care, Re-evaluation by your physician. Signatures: Dispatcher [employer] Gertrudis Child, JENNIFER-C BISCUIT MACHINE OPERATOR-Chencho Jackson, RN Arielle Asencio RN RN Estevan Landon MD MD ma2 Corrections: (The following items were deleted from the chart) 11:13 11:00 10/02/2019 11:00 Discharged to Home. Impression: Upper abdominal pain, em unspecified. Condition is Stable. Forms are Medication Reconciliation Form, Thank You Letter, Antibiotic Education, Prescription Opioid Use. Follow up: Emergency Department; When: As needed; Reason: Worsening of condition. Follow up: Private Physician; When: 2 - 3 days; Reason: Recheck today's complaints, Continuance of care, Re-evaluation by your physician. kb
--- NOTE | 2019-10-02 11:02 | ER ---
Nurse's Notes [facility] Name: Awa Walker Age: 18 yrs Sex: Female : 2000 Arrival Date: 10/02/2019 Time: 09:41 Bed 7 Private MD: Diagnosis: Upper abdominal pain, unspecified Presentation: 10/01 09:41 Chief complaint: Patient states: sharp R flank pain that is worse when moving x 2-3 ss days. Pt also c/o mild nausea. Seen in ER recently for abd pain and told that her spleen was enlarged. Coronavirus screen: Proceed with normal triage. Patient denies a cough. Patient denies shortness of breath or difficulty breathing. Patient denies measured and/or subjective temperature greater than 100.4F prior to today's visit. Patient denies travel on a cruise ship or to a country the [facility] currently lists as an affected area. Patient denies contact with known and/or suspected case of COVID-19. Ebola Screen: Patient denies exposure to infectious person. Patient denies travel to an Ebola-affected area in the 21 days before illness onset. Initial Sepsis Screen: Does the patient meet any 2 criteria? No. Patient's initial sepsis screen is negative. Does the patient have a suspected source of infection? No. Patient's initial sepsis screen is negative. Risk Assessment: Do you want to hurt yourself or someone else? Patient reports no desire to harm self or others. Onset of symptoms is unknown. 09:41 Method Of Arrival: Ambulatory ss 09:41 Acuity: JILLIAN 3 ss Historical: - Allergies: 10:04 Tamiflu; ss - PMHx: 10:04 GERD; ss - PSHx: 10:04 ear surgery; ss - Immunization history:: Adult Immunizations up to date. - Social history:: Smoking status: Patient denies any tobacco usage or history of. Screenin:01 Abuse screen: Denies threats or abuse. Nutritional screening: No deficits noted. em Tuberculosis screening: No symptoms or risk factors identified. Fall Risk None identified. Assessment: 10:00 General: Appears in no apparent distress. comfortable, Behavior is calm, cooperative, em appropriate for age, Denies fever. Pain: Denies pain. Pain radiates to posterior aspect of right lateral abdomen Pain currently is 0 out of 10 on a pain scale. Pain began 2-3 days ago. Neuro: Level of Consciousness is awake, alert, obeys commands, Oriented to person, place, time, situation, Appropriate for age. Cardiovascular: Capillary refill < 3 seconds Patient's skin is warm and dry. Respiratory: Airway is patent Respiratory effort is even, unlabored, Respiratory pattern is regular, symmetrical. GI: Abdomen is flat, Bowel sounds present X 4 quads. Abd is soft and non tender X 4 quads. : Denies burning with urination, urinary frequency. Derm: Skin is intact, is healthy with good turgor, Skin is pink, warm \T\ dry. Musculoskeletal: Capillary refill < 3 seconds, Range of motion: intact in all extremities. Vital Signs: 09:41 BP 129 / 93; Pulse 89; Resp 15; Temp 97.6(TE); Pulse Ox 100% on R/A; Weight 77.11 kg; ss Height 5 ft. 4 in. (162.56 cm); Pain 0/10; 10:34 BP 135 / 90; Pulse 87; Resp 16; Pulse Ox 100% ; sv 09:41 Body Mass Index 29.18 (77.11 kg, 162.56 cm) ED Course: 09:41 Patient arrived in ED. mr 09:42 Chencho Bustillos, ALPA is Primary Nurse. em 09:43 Gertrudis Augustin FNP-C is PHCP. kb 09:43 Estevan Landon MD is Attending Physician. kb 09:55 Initial lab(s) drawn, by me, sent to lab. kj1 09:55 Inserted saline lock: 22 gauge in right antecubital area, using aseptic technique. kj1 Blood collected. 10:01 Patient has correct armband on for positive identification. Bed in low position. Call em light in reach. Pulse ox on. NIBP on. 10:03 Triage completed. ss 10:04 Arm band placed on right wrist. ss 10:27 US Abdomen Limited In Process Unspecified. EDMS 11:13 No provider procedures requiring assistance completed. IV discontinued, intact, em bleeding controlled, No redness/swelling at site. Pressure dressing applied. Administered Medications: 11:03 Drug: TORadol - Ketorolac 15 mg Route: IVP; Site: right antecubital; em 11:12 Follow up: Response: No adverse reaction em Outcome: 11:00 Discharge ordered by . kb 11:13 Discharged to home ambulatory. em 11:13 Condition: good 11:13 Discharge instructions given to patient, Instructed on discharge instructions, follow up and referral plans. Demonstrated understanding of instructions, follow-up care. 11:13 Patient left the ED. em Signatures: Dispatcher [employer] Gertrudis Child, JUAN DAVID RODRIGUEZ-Smita Harper RN RN Sarah Villaseñor Edgar, RN RN em Smirch, Shelby, RN RN Treva Augustin kj1
[2019-10-02] MEDS ORDERED: KETOROLAC 30 MG/ML INJ ONE (11:06)
[2019-10-02 11:21] VITALS: TEMP 97.6; O2SAT 100
[2019-10-02 11:22] VITALS: BP 135/90
[2019-10-02 13:45] LABS: Urine Blood NEGATIVE (NEG); Urine Glucose NEGATIVE (NEG); Urine Protein NEGATIVE (NEG); Urine Specific Gravity 1.025 (1.005-1.030)
== END 2019-10-02 11:13 | disposition home or self-care (01) ==
LOC: ER 09:38
DX: R10.11 Right upper quadrant pain (principal); R10.12 Left upper quadrant pain
CPT/HCPCS: 36415; 76705; 80048; 80076; 81003; 81025; 83690; 85025; 86308; 96374; 99284

== ENCOUNTER 2019-11-18 13:45 | Emergency (ER) | payer SELFPAY ==
[2019-11-18 14:48] LABS: Urine Blood TRACE (NEG); Urine Glucose NEGATIVE (NEG); Urine Protein TRACE (NEG); Urine Specific Gravity 1.025 (1.005-1.030)
[2019-11-18] MEDS ORDERED: NA CHLORIDE 0.9% 1,000 ML ONE (15:20)
[2019-11-18 16:33] LABS: ALT/SGPT 14 U/L (12-78); AST/SGOT 9 U/L (15-37); Albumin 3.7 g/dL (3.4-5.0); Alkaline Phosphatase 58 U/L (45-117); BUN Blood Urea Nitrogen 8 mg/dL (7-18); Bicarbonate 25 mmol/L (21-32); Bilirubin Direct < 0.1 mg/dL (0-0.2); Bilirubin Total 0.3 mg/dL (0.2-1.0); Glucose Level 83 mg/dL (74-106); Lipase 57 U/L (73-393); Potassium 3.6 mmol/L (3.5-5.1); Protein, Total 7.7 g/dL (6.4-8.2); Sodium Level 140 mmol/L (136-145)
[2019-11-18 16:48] LABS: Absolute Lymphocytes (CBC) 1.1 K/uL (0.7-4.9); Basophils % 0.3 % (0-1.3); Hematocrit 27.4 % (36.0-45.0); Lymphocytes % 18.2 % (15.3-44.8); MPV 8.8 fL (7.6-11.3); RBC Red Blood Cell Count 4.31 M/uL (3.86-4.86)
--- NOTE | 2019-11-18 17:28 | RAD REPORT ---
EXAM DESCRIPTION: CT - Abdomen Pelvis W Contrast - 11/18/2019 4:57 pm CLINICAL HISTORY: Abdominal pain COMPARISON: 09/2019 TECHNIQUE: Computed axial tomography of the abdomen pelvis was obtained. 100 cc Isovue-300 was admin istered intravenously. Oral contrast was not requested which limits evaluation of bowel. All CT scans are performed using dose optimization technique as appropriate and may include automated exposure control or mA/KV adjustment according to patient size. FINDINGS: The liver, pancreas, adrenal and kidneys appear unremarkable. Spleen measures 13.5 millimeters There is no evidence of diverticulitis. 4.7 centimeter left ovarian cyst. 4 x 2.5 centimeter fluid collection within the cul-de-sac with an enhancing rim. Small amount of flui d within the right adnexal and anterior pelvis with stranding within the mesentery. Appendix is upper limits normal size. A tampon is present within the vagina IMPRESSION: 4.7 centimeter left ovarian cyst 4 x 2.5 centimeter fluid collection within the cul-de-sac may indicate an abscess or subacute hematom a Mild splenomegaly
[2019-11-18 18:18] LABS: Anisocytosis 2+; Blood Morphology Comment NOTED (NOT SEEN); Hypochromasia 2+; Platelet Estimate ADEQ; Poikilocytosis SLIGHT; Polychromasia 1+; Urine White Blood Cell Casts OK
[2019-11-18 20:40] VITALS: TEMP 98.6
[2019-11-18 20:43] VITALS: BP 111/62
[2019-11-18 20:44] VITALS: O2SAT 100
--- NOTE | 2019-11-18 21:18 | RAD REPORT ---
EXAM DESCRIPTION: US - Pelvis Complete - 11/18/2019 8:34 pm CLINICAL HISTORY: Pelvic pain COMPARISON: November 18, 2019 cat scan FINDINGS: The uterus measures 9 x 4 x 5 centimeters. The endometrial stripe is normal thickness. A f ibroid is not seen. 4.7 centimeter complex cystic mass is present within the left adnexal. The right ovary is normal in size and echotexture. Right adnexa unremarkable. 4 x 2.5 centimeter fluid collection within the cul-de-sac IMPRESSION: 4.7 centimeter complex cystic mass left adnexa and 4 x 2.5 centimeter fluid collection w ithin the cul-de-sac. These may represent tubo-ovarian abscesses
--- NOTE | 2019-11-21 17:21 | EDPHYS ---
Physician Documentation [facility] Name: Awa Walker Age: 18 yrs Sex: Female : 2000 Arrival Date: 11/18/2019 Time: 13:47 Bed 14 Private MD: ED Physician Jaiden Mccoy HPI: 11/17 15:41 This 18 yrs old Female presents to ER via Ambulatory with complaints of jr8 Abdominal Pain. 15:41 The patient presents with abdominal pain in the left upper quadrant, in the left lower jr8 quadrant. Onset: The symptoms/episode began/occurred acutely, yesterday. The symptoms do not radiate. Associated signs and symptoms: none. The symptoms are described as stabbing. Modifying factors: The symptoms are alleviated by nothing, the symptoms are aggravated by nothing. Severity of pain: At its worst the pain was moderate in the emergency department the pain is unchanged. The patient has experienced a previous episode. The patient has not recently seen a physician. [employer]: 14:15 LMP 11/18/2019 ph Historical: - Allergies: 14:15 Tamiflu; ph - PMHx: 14:15 GERD; ph - PSHx: 14:15 ear surgery; ph - Immunization history:: Adult Immunizations unknown. - Social history:: Smoking status: Patient denies any tobacco usage or history of. ROS: 15:41 Eyes: Negative for injury, pain, redness, and discharge, ENT: Negative for injury, jr8 pain, and discharge, Neck: Negative for injury, pain, and swelling, Cardiovascular: Negative for chest pain, palpitations, and edema, Respiratory: Negative for shortness of breath, cough, wheezing, and pleuritic chest pain, Back: Negative for injury and pain, MS/Extremity: Negative for injury and deformity, Skin: Negative for injury, rash, and discoloration, Neuro: Negative for headache, weakness, numbness, tingling, and seizure. 15:41 Abdomen/GI: Positive for abdominal pain, Negative for nausea, vomiting, and diarrhea, constipation, abdominal cramps, abdominal distension, anorexia, dysphagia, hematemesis, black/tarry stool, rectal pain, rectal bleeding, bowel incontinence, flatulence. Exam: 15:41 Eyes: Pupils equal round and reactive to light, extra-ocular motions intact. Lids and jr8 lashes normal. Conjunctiva and sclera are non-icteric and not injected. Cornea within normal limits. Periorbital areas with no swelling, redness, or edema. ENT: Nares patent. No nasal discharge, no septal abnormalities noted. Tympanic membranes are normal and external auditory canals are clear. Oropharynx with no redness, swelling, or masses, exudates, or evidence of obstruction, uvula midline. Mucous membranes moist. Neck: Trachea midline, no thyromegaly or masses palpated, and no cervical lymphadenopathy. Supple, full range of motion without nuchal rigidity, or vertebral point tenderness. No Meningismus. Cardiovascular: Regular rate and rhythm with a normal S1 and S2. No gallops, murmurs, or rubs. Normal PMI, no JVD. No pulse deficits. Respiratory: Lungs have equal breath sounds bilaterally, clear to auscultation and percussion. No rales, rhonchi or wheezes noted. No increased work of breathing, no retractions or nasal flaring. Back: No spinal tenderness. No costovertebral tenderness. Full range of motion. Skin: Warm, dry with normal turgor. Normal color with no rashes, no lesions, and no evidence of cellulitis. MS/ Extremity: Pulses equal, no cyanosis. Neurovascular intact. Full, normal range of motion. Neuro: Awake and alert, GCS 15, oriented to person, place, time, and situation. Cranial nerves II-XII grossly intact. Motor strength 5/5 in all extremities. Sensory grossly intact. Cerebellar exam normal. Normal gait. 15:41 Abdomen/GI: Inspection: obese Bowel sounds: active, all quadrants, Palpation: soft, in all quadrants, moderate abdominal tenderness, in the left upper quadrant and left lower quadrant, mass, is not appreciated, rebound tenderness, is not appreciated, voluntary guarding, is not appreciated, involuntary guarding, is not appreciated, no appreciated organomegaly, Indicators: McBurney's point is not tender, Saldana's sign is negative, Rovsing's sign is negative, Liver: tenderness, is not appreciated. Vital Signs: 14:11 BP 122 / 80; Pulse 125; Resp 18; Temp 98.6; Pulse Ox 98% on R/A; Weight 80.74 kg; ph Height 5 ft. 4 in. (162.56 cm); 15:51 BP 101 / 59; Pulse 92; Resp 16 S; Pulse Ox 100% on R/A; iw 19:38 BP 111 / 62; Pulse 96; Resp 16 S; Pulse Ox 99% on R/A; jd3 20:31 Pulse 91; Resp 17 S; Pulse Ox 100% on R/A; jd3 14:11 Body Mass Index 30.55 (80.74 kg, 162.56 cm) ph MDM: 14:25 Patient medically screened. [facility] 18:00 Data reviewed: vital signs, nurses notes, lab test result(s), radiologic studies, CT jr8 scan. Data interpreted: Pulse oximetry: on room air is 100 %. Interpretation: normal. Counseling: I had a detailed discussion with the patient and/or guardian regarding: the historical points, exam findings, and any diagnostic results supporting the discharge/admit diagnosis, lab results, radiology results, the need for outpatient follow up, a family practitioner, an OB/Gyne specialist, to return to the emergency department if symptoms worsen or persist or if there are any questions or concerns that arise at home. Response to treatment: the patient's symptoms have mildly improved after treatment. 18:00 Transition of care: After a detail discussion of the patient's case, care is jr8 transferred to Rick BARRERA. 11/17 14:40 Order name: Urine Dipstick--Ancillary (enter results); Complete Time: 14:54 11/17 14:40 Order name: Urine --Ancillary (enter results); Complete Time: 14:54 bd 11/17 14:55 Order name: Basic Metabolic Panel; Complete Time: 16:37 11/17 14:55 Order name: CBC with Diff; Complete Time: 18:27 11/17 14:55 Order name: Hepatic Function; Complete Time: 16:37 11/17 14:55 Order name: Lipase; Complete Time: 16:37 11/17 14:55 Order name: IV Saline Lock; Complete Time: 15:46 11/17 14:55 Order name: Labs collected and sent; Complete Time: 15:46 11/17 15:56 Order name: CT Abd/Pelvis - IV Contrast Only; Complete Time: 17:48 [facility] 11/17 18:19 Order name: CBC Smear Scan; Complete Time: 18:27 EDMS 11/17 18:53 Order name: US Pelvis Complete; Complete Time: 06:11 [facility] Administered Medications: 15:50 Drug: NS 0.9% 1000 ml Route: IV; Rate: 1000 ml; Site: right antecubital; 19:00 Follow up: Response: No adverse reaction; IV Status: Completed infusion jd3 Disposition: 11/18 07:46 Co-signature as Attending Physician, Jaiden Mccoy MD I agree with the assessment and shayna plan of care. Disposition: 11/18/19 20:21 Discharged to Home. Impression: Unspecified ovarian cysts. - Condition is Stable. - Discharge Instructions: Ovarian Cyst. - Prescriptions for Tylenol- Codeine #3 300-30 mg Oral Tablet - take 1 tablet by ORAL route every 6 hours As needed; 12 tablet. Zofran 4 mg Oral Tablet - take 1 tablet by ORAL route every 12 hours As needed; 20 tablet. - Work release form, Medication Reconciliation Form, Thank You Letter, Antibiotic Education, Prescription Opioid Use form. - Follow up: Private Physician; When: 2 - 3 days; Reason: Recheck today's complaints, Continuance of care, Re-evaluation by your physician. Signatures: Dispatcher [employer] EDJaiden Rees MD MD cha Mickail, Joel, PA PA Catrachita Lew ph D, RN RN iw Roszak, Josh, PA PA jr8 Hall, Patricia, RN RNavies, Jonathon, RN RN jd3 Corrections: (The following items were deleted from the chart) 11/17 20:32 20:21 11/18/2019 20:21 Discharged to Home. Impression: Unspecified ovarian cysts. jd3 Condition is Stable. Forms are Medication Reconciliation Form, Thank You Letter, Antibiotic Education, Prescription Opioid Use. Follow up: Private Physician; When: 2 - 3 days; Reason: Recheck today's complaints, Continuance of care, Re-evaluation by your physician. [facility] 11/18 06:14 06:10 Data reviewed: vital signs, nurses notes, lab test result(s), radiologic studies, puma CT scan, puma 06:10 Data interpreted: Pulse oximetry: on room air is 100 %. Interpretation: normal. puma bartholomew 06:10 Counseling: I had a detailed discussion with the patient and/or guardian puma regarding: the historical points, exam findings, and any diagnostic results supporting the discharge/admit diagnosis, lab results, radiology results, the need for outpatient follow up, a family practitioner, an OB/Gyne specialist, to return to the emergency department if symptoms worsen or persist or if there are any questions or concerns that arise at home, jr8 06:14 06:10 Response to treatment: the patient's symptoms have mildly improved after jr8 treatment, jr8
--- NOTE | 2019-11-21 17:21 | ER ---
Nurse's Notes [facility] Name: Awa Walker Age: 18 yrs Sex: Female : 2000 Arrival Date: 11/18/2019 Time: 13:47 Bed 14 Private MD: Diagnosis: Unspecified ovarian cysts Presentation: 11/17 14:11 Chief complaint: Patient states: Intermittent abdominal pain in entire stomach, denies ph fever, N/V/D, states, " I've been seen here in a couple of times in the past few months and last time they said my spleen was enlarged but I haven't followed up w/ anyone.". Coronavirus screen: Patient denies a cough. Patient denies shortness of breath or difficulty breathing. Patient denies measured and/or subjective temperature greater than 100.4F prior to today's visit. Patient denies travel on a cruise ship or to a country the [facility] currently lists as an affected area. Patient denies contact with known and/or suspected case of COVID-19. Ebola Screen: No symptoms or risks identified at this time. Initial Sepsis Screen: Does the patient meet any 2 criteria? No. Patient's initial sepsis screen is negative. Does the patient have a suspected source of infection? No. Patient's initial sepsis screen is negative. Risk Assessment: Do you want to hurt yourself or someone else? Patient reports no desire to harm self or others. Onset of symptoms was November 18, 2019. 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 - Social history:: Smoking status: Patient denies any tobacco usage or history of. Screenin:32 Abuse screen: Denies threats or abuse. Denies injuries from another. Nutritional ls4 screening: No deficits noted. Tuberculosis screening: No symptoms or risk factors identified. Fall Risk None identified. Assessment: 15:51 General: Appears in no apparent distress. Behavior is calm, cooperative. Pain: iw Complains of pain in left lower quadrant and left upper quadrant. Neuro: Level of Consciousness is awake, alert, obeys commands, Oriented to person, place, time, situation, Moves all extremities. Full function. Respiratory: Respiratory effort is even, unlabored, Respiratory pattern is regular. GI: Abdomen is non-distended, Bowel sounds present X 4 quads. Abd is soft X 4 quads Abdomen is tender to palpation in left upper quadrant and left lower quadrant Reports lower abdominal pain, Patient currently denies diarrhea, vomiting. 17:30 Reassessment: Patient appears in no apparent distress at this time. Patient and/or iw family updated on plan of care and expected duration. Pain level reassessed. Patient is alert, oriented x 3, equal unlabored respirations, skin warm/dry/pink. 18:46 Reassessment: Patient appears in no apparent distress at this time. Patient and/or iw family updated on plan of care and expected duration. Pain level reassessed. Patient is alert, oriented x 3, equal unlabored respirations, skin warm/dry/pink. 19:25 Reassessment: ultrasound called and notified of study. jd3 19:33 General: Appears in no apparent distress. comfortable, Behavior is calm, cooperative, jd3 appropriate for age. Pain: Complains of pain in left lower quadrant Quality of pain is described as aching. Neuro: Level of Consciousness is awake, alert, obeys commands, Oriented to person, place, time, situation. Cardiovascular: Capillary refill < 3 seconds Patient's skin is warm and dry. : No signs and/or symptoms were reported regarding the genitourinary system. EENT: No signs and/or symptoms were reported regarding the EENT system. Derm: Skin is intact, Skin is dry, Skin is normal, Skin temperature is warm. Musculoskeletal: Circulation, motion, and sensation intact. Range of motion: intact in all extremities. 20:05 Reassessment: ultrasound at bedside. jd3 20:30 Reassessment: Patient appears in no apparent distress at this time. Patient and/or jd3 family updated on plan of care and expected duration. Pain level reassessed. Patient is alert, oriented x 3, equal unlabored respirations, skin warm/dry/pink. pt reported understanding of discharge instructions. Patient states feeling better. Vital Signs: 14:11 BP 122 / 80; Pulse 125; Resp 18; Temp 98.6; Pulse Ox 98% on R/A; Weight 80.74 kg; ph Height 5 ft. 4 in. (162.56 cm); 15:51 BP 101 / 59; Pulse 92; Resp 16 S; Pulse Ox 100% on R/A; iw 19:38 BP 111 / 62; Pulse 96; Resp 16 S; Pulse Ox 99% on R/A; jd3 20:31 Pulse 91; Resp 17 S; Pulse Ox 100% on R/A; jd3 14:11 Body Mass Index 30.55 (80.74 kg, 162.56 cm) ph ED Course: 13:47 Patient arrived in ED. as 14:14 Triage completed. ph 14:15 Arm band placed on. ph 14:25 Rufus Hoff PA is PHCP. jr8 14:25 Jaiden Mccoy MD is Attending Physician. jr8 14:31 Flores Escamilla, ALPA is Primary Nurse. ls4 14:32 No apparent distress. ls4 14:32 Patient has correct armband on for positive identification. Bed in low position. Call ls4 light in reach. Side rails up X 1. Pulse ox on. NIBP on. Warm blanket given. Verbal reassurance given. Diet: Patient is NPO. 14:32 No provider procedures requiring assistance completed. ls4 15:43 Inserted saline lock: 20 gauge in right antecubital area, using aseptic technique. [facility] 16:07 [facility] handed off by Rufus Hoff PA [facility] 16:07 Rick Rees PA is PHCP. m 16:57 CT Abd/Pelvis - IV Contrast Only In Process Unspecified. EDMS 20:30 IV discontinued, intact, bleeding controlled, No redness/swelling at site. Pressure jd3 dressing applied. 20:34 US Pelvis Complete In Process Unspecified. EDMS Administered Medications: 15:50 Drug: NS 0.9% 1000 ml Route: IV; Rate: 1000 ml; Site: right antecubital; iw 19:00 Follow up: Response: No adverse reaction; IV Status: Completed infusion jd3 Outcome: 20:21 Discharge ordered by . jmm 20:30 Discharged to home ambulatory, with family. jd3 20:30 Condition: stable 20:30 Discharge instructions given to patient, Instructed on discharge instructions, follow up and referral plans. the need for admit, Demonstrated understanding of instructions, follow-up care, medications, Prescriptions given X 2. 20:32 Patient left the ED. jd3 Signatures: Dispatcher [employer] EDMS Rick Rees PA PA jmm Martinez, Amelia as Williams, Irene, RN RN iw Roszak, Josh, PA PA jr8 Aylin Ahuja RN RN samuel Stout, ALPA Horowitz RN jFlores Mendez RN RN 4 Andrea Connell [facility] Corrections: (The following items were deleted from the chart) 19:40 19:25 Reassessment: ultrasound called and notified of scan jd3 jd3 20:15 20:10 Reassessment: ultrasound at bedside jd3 jd3
== END 2019-11-18 20:32 | disposition home or self-care (01) ==
LOC: ER 13:45
DX: N83.209 Unspecified ovarian cyst, unspecified side (principal); Z88.8 Allergy status to other drugs, medicaments and biological substances
CPT/HCPCS: 36415; 74177; 76856; 80048; 80076; 81003; 81025; 83690; 85025; 96360; 96361; 99284; J7030; Q9967

== ENCOUNTER 2020-02-01 10:01 | Emergency (ER) | payer SELFPAY ==
--- NOTE | 2020-02-01 10:18 | EDPHYS ---
Physician Documentation [facility] Name: Awa Walker Age: 19 yrs Sex: Female : 2000 Arrival Date: 02/01/2020 Time: 10:03 Bed External Waiting Private MD: ED Physician Julius Cook HPI: 01/31 10:25 This 19 yrs old Female presents to ER via Unassigned with complaints of Ear kb Pain, Mouth Problem. 10:25 The patient presents with a fullness, pain, tenderness. The complaints affect the left kb ear. Onset: The symptoms/episode began/occurred 3 day(s) ago, and became worse this morning. Modifying factors: The symptoms are alleviated by nothing, the symptoms are aggravated by pulling on ears, touching. Associated signs and symptoms: The patient has no apparent associated signs or symptoms. Severity of symptoms: At their worst the symptoms were moderate in the emergency department the symptoms are unchanged. The patient has not experienced similar symptoms in the past. The patient has not recently seen a physician. Pt reports left ear pain that started 3 days ago and has gotten worse. Reports now has pain when she opens her jaw or moves her head. States she has been in the water a lot lately. Denies fever. ROS: 10:25 Constitutional: Negative for fever, chills, and weight loss, Cardiovascular: Negative kb for chest pain, palpitations, and edema, Respiratory: Negative for shortness of breath, cough, wheezing, and pleuritic chest pain, Abdomen/GI: Negative for abdominal pain, nausea, vomiting, diarrhea, and constipation, MS/Extremity: Negative for injury and deformity, Skin: Negative for injury, rash, and discoloration, Neuro: Negative for headache, weakness, numbness, tingling, and seizure. 10:25 ENT: Positive for ear pain. Exam: 10:25 Constitutional: This is a well developed, well nourished patient who is awake, alert, kb and in no acute distress. Head/Face: Normocephalic, atraumatic. Neck: Trachea midline, no thyromegaly or masses palpated, and no cervical lymphadenopathy. Supple, full range of motion without nuchal rigidity, or vertebral point tenderness. No Meningismus. Chest/axilla: Normal chest wall appearance and motion. Nontender with no deformity. No lesions are appreciated. Cardiovascular: Regular rate and rhythm with a normal S1 and S2. No gallops, murmurs, or rubs. Normal PMI, no JVD. No pulse deficits. Respiratory: Lungs have equal breath sounds bilaterally, clear to auscultation and percussion. No rales, rhonchi or wheezes noted. No increased work of breathing, no retractions or nasal flaring. Abdomen/GI: Soft, non-tender, with normal bowel sounds. No distension or tympany. No guarding or rebound. No evidence of tenderness throughout. Skin: Warm, dry with normal turgor. Normal color with no rashes, no lesions, and no evidence of cellulitis. MS/ Extremity: Pulses equal, no cyanosis. Neurovascular intact. Full, normal range of motion. Neuro: Awake and alert, GCS 15, oriented to person, place, time, and situation. Cranial nerves II-XII grossly intact. Motor strength 5/5 in all extremities. Sensory grossly intact. Cerebellar exam normal. Normal gait. 10:25 ENT: Ear canal(s): erythema, that is moderate, of the left canal, swelling, that is moderate, of the left canal, TM's: are normal. Vital Signs: 10:20 BP 146 / 77; Pulse 93; Resp 16; Temp 98.7; Pulse Ox 100% on R/A; Weight 78.47 kg; iw Height 5 ft. 4 in. (162.56 cm); Pain 10/10; 10:20 Body Mass Index 29.70 (78.47 kg, 162.56 cm) iw MDM: 10:14 Patient medically screened. kb 10:23 Data reviewed: vital signs, nurses notes. Data interpreted: Pulse oximetry: on room air kb is 100 %. Interpretation: normal. Counseling: I had a detailed discussion with the patient and/or guardian regarding: the historical points, exam findings, and any diagnostic results supporting the discharge/admit diagnosis, the need for outpatient follow up, an ENT specialist, to return to the emergency department if symptoms worsen or persist or if there are any questions or concerns that arise at home. Administered Medications: 10:22 Drug: TORadol 30 mg Route: IM; Site: right deltoid; iw Disposition: 16:24 Co-signature as Attending Physician, Julius Cook MD I agree with the assessment and kdr plan of care. Disposition: 08/12/20 10:17 Discharged to Home. Impression: Unspecified otitis externa, left ear. - Condition is Stable. - Discharge Instructions: Otitis Externa, [id number], Ear Drops, Adult, [id number]. - Prescriptions for Cortisporin 3.5- 10,000-1 mg/mL-unit/mL-% Otic solution - instill 4 drop by OTIC route 4 times per day; 1 bottle. - Medication Reconciliation Form, Thank You Letter, Antibiotic Education, Prescription Opioid Use form. - Follow up: Emergency Department; When: As needed; Reason: Worsening of condition. Follow up: Private Physician; When: 2 - 3 days; Reason: Recheck today's complaints, Continuance of care, Re-evaluation by your physician. Signatures: Gertrudis Augustin, COMMUNICABLE DISEASE SPECIALIST-C COMMUNICABLE DISEASE SPECIALIST-Ckb Julius Cook MD MD kdr Williams, Irene, RN RN iw Corrections: (The following items were deleted from the chart) 10:29 10:17 02/01/2020 10:17 Discharged to Home. Impression: Unspecified otitis externa, left iw ear. Condition is Stable. Forms are Medication Reconciliation Form, Thank You Letter, Antibiotic Education, Prescription Opioid Use. Follow up: Emergency Department; When: As needed; Reason: Worsening of condition. Follow up: Private Physician; When: 2 - 3 days; Reason: Recheck today's complaints, Continuance of care, Re-evaluation by your physician. kb
--- NOTE | 2020-02-01 10:29 | ER ---
Nurse's Notes [facility] Name: Awa Walker Age: 19 yrs Sex: Female : 2000 Arrival Date: 02/01/2020 Time: 10:03 Bed External Waiting [facility] MD: Diagnosis: Unspecified otitis externa, left ear Presentation: 01/31 10:20 Chief complaint: Patient states: left ear pain X 3 days. Coronavirus screen: Client iw denies travel out of the [place] in the last 14 days. At this time, the client does not indicate any symptoms associated with coronavirus-19. Ebola Screen: Patient negative for fever greater than or equal to 101.5 degrees Fahrenheit, and additional compatible Ebola Virus Disease symptoms Patient denies exposure to infectious person. Patient denies travel to an Ebola-affected area in the 21 days before illness onset. No symptoms or risks identified at this time. Initial Sepsis Screen: Does the patient meet any 2 criteria? No. Patient's initial sepsis screen is negative. Does the patient have a suspected source of infection? No. Patient's initial sepsis screen is negative. Risk Assessment: Do you want to hurt yourself or someone else? Patient reports no desire to harm self or others. Onset of symptoms was January 29, 2020. 10:20 Method Of Arrival: Ambulatory iw 10:20 Acuity: JILLIAN 5 iw Vital Signs: 10:20 BP 146 / 77; Pulse 93; Resp 16; Temp 98.7; Pulse Ox 100% on R/A; Weight 78.47 kg; iw Height 5 ft. 4 in. (162.56 cm); Pain 10/10; 10:20 Body Mass Index 29.70 (78.47 kg, 162.56 cm) iw ED Course: 10:03 Patient arrived in ED. ag5 10:08 Gertrudis Augustin FNP-C is [facility]. kb 10:08 Julius Cook MD is Attending Physician. kb 10:27 Catrachita Doherty, ALPA is Primary Nurse. iw 10:28 Triage completed. iw 10:28 Arm band placed on. iw Administered Medications: 10:22 Drug: TORadol 30 mg Route: IM; Site: right deltoid; iw Outcome: 10:17 Discharge ordered by . kb 10:28 Discharged to home ambulatory. iw 10:28 Condition: good 10:28 Discharge instructions given to patient, Instructed on discharge instructions, follow up and referral plans. medication usage, Demonstrated understanding of instructions, follow-up care, medications, Prescriptions given X 1. 10:29 Patient left the ED. iw Signatures: Gertrudis Augustin, STEM SHAPER-C STEM SHAPER-Catrachita Tavarez, RN RN sorin Jain, Michelle ag5
[2020-02-01 10:33] VITALS: BP 146/77; TEMP 98.7; O2SAT 100
[2020-02-01] MEDS ORDERED: KETOROLAC 30 MG/ML INJ ONE (10:33)
== END 2020-02-01 10:29 | disposition home or self-care (01) ==
LOC: ER 10:01
DX: H60.92 Unspecified otitis externa, left ear (principal)
CPT/HCPCS: 96372; 99283

== ENCOUNTER 2021-03-30 00:42 | Emergency (ER) | payer SELFPAY ==
[2021-03-30 01:45] LABS: Absolute Lymphocytes (CBC) 1.2 K/uL (0.7-4.9); Basophils % 0.5 % (0-1.3); Hematocrit 28.6 % (36.0-45.0); Lymphocytes % 15.1 % (15.3-44.8); MPV 8.4 fL (7.6-11.3); RBC Red Blood Cell Count 4.59 M/uL (3.86-4.86)
[2021-03-30] MEDS ORDERED: NA CHLORIDE 0.9% 1,000 ML ONE (01:52)
[2021-03-30] MEDS ORDERED: ONDANSETRON 4 MG/2 ML VIAL ONE (01:52)
[2021-03-30] MEDS ORDERED: MORPHINE 2 MG/ML SYR ONE (01:56)
[2021-03-30 02:00] LABS: Urine Bacteria >50 /HPF (<20); Urine Mucus 3+ /HPF (NONE SEEN)
[2021-03-30 02:03] LABS: Urine Blood Negative (Negative); Urine Glucose Negative (Negative); Urine Protein 1+ (Negative); Urine Specific Gravity >=1.030 (1.005-1.030)
[2021-03-30 02:15] LABS: Anisocytosis 1+; Blood Morphology Comment NOTED (NOT SEEN); Hypochromasia 2+; Ovalocytes 2+; Platelet Estimate ADEQ; Teardrop Cell 1+; White Blood Cell Scan OK (OK)
[2021-03-30 02:16] LABS: ALT/SGPT 18 U/L (12-78); AST/SGOT 7 U/L (15-37); Albumin 4.6 g/dL (3.4-5.0); Alkaline Phosphatase 56 U/L (45-117); BUN Blood Urea Nitrogen 11 mg/dL (7-18); Bicarbonate 28 mmol/L (21-32); Bilirubin Direct 0.1 mg/dL (0-0.2); Bilirubin Total 0.5 mg/dL (0.2-1.0); Glucose Level 107 mg/dL (74-106); Lipase 59 U/L (73-393); Potassium 3.8 mmol/L (3.5-5.1); Protein, Total 8.5 g/dL (6.4-8.2); Sodium Level 139 mmol/L (136-145)
[2021-03-30 02:18] LABS: Urine Specific Gravity/Preg >1.030 (1.005-1.030)
[2021-03-30] MEDS ORDERED: FENTANYL CITR 100 MCG/2 ML ONE (03:23)
[2021-03-30] MEDS ORDERED: CEFTRIAXONE 1000 MG/VIAL ONE ×2 (03:36→03:41)
[2021-03-30] MEDS ORDERED: KETOROLAC 30 MG/ML INJ ONE (03:45)
--- NOTE | 2021-03-30 04:11 | EDPHYS ---
Physician Documentation [facility] Name: Awa Walker Age: 20 yrs Sex: Female : 2000 Arrival Date: 03/30/2021 Time: 00:45 Bed 30 Private MD: ED Physician Tl Lopez HPI: 03/30 01:25 This 20 yrs old Female presents to ER via Ambulatory with complaints of cp Abdominal Pain, Low Back Pain. 01:25 The patient presents with abdominal pain in the lower abdomen. The symptoms radiate to cp low back area. 01:25 Associated signs and symptoms: Pertinent positives: vaginal discharge, Pertinent cp negatives: anorexia, blood in stools, constipation, diarrhea, dysuria, fever. The symptoms are described as constant. 01:25 Onset: The symptoms/episode began/occurred 3 day(s) ago. 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 Last tetanus immunization: up to date. - Social history:: Smoking status: Patient denies any tobacco usage or history of. Patient/guardian denies using street drugs, tobacco products. ROS: 01:30 Constitutional: Negative for body aches, chills, fever, poor PO intake. cp 01:30 Eyes: Negative for injury, pain, redness, and discharge. cp 01:30 ENT: Negative for ear pain, sore throat, difficulty swallowing, difficulty handling secretions. 01:30 Cardiovascular: Negative for chest pain, palpitations. 01:30 Respiratory: Negative for cough, shortness of breath, wheezing. 01:30 Abdomen/GI: Positive for abdominal pain, nausea, Negative for vomiting, diarrhea, constipation. 01:30 Back: Positive for radiated pain, of the low back area. 01:30 : Positive for vaginal discharge, Negative for urinary symptoms, vaginal bleeding. 01:30 All other systems are negative. Exam: 01:35 Constitutional: The patient appears in no acute distress, alert, awake, non-toxic, well cp developed, well nourished, uncomfortable. 01:35 Head/Face: Normocephalic, atraumatic. cp 01:35 Eyes: Periorbital structures: appear normal, Conjunctiva: normal, no exudate, no injection, Sclera: no appreciated abnormality, Lids and lashes: appear normal, bilaterally. 01:35 ENT: External ear(s): are unremarkable, Nose: is normal, Mouth: Lips: moist, Oral mucosa: moist, Posterior pharynx: Airway: no evidence of obstruction, patent. 01:35 Chest/axilla: Inspection: normal. 01:35 Cardiovascular: Rate: tachycardic, Rhythm: regular. 01:35 Respiratory: the patient does not display signs of respiratory distress, Respirations: normal, no use of accessory muscles, no retractions, labored breathing, is not present, Breath sounds: are clear throughout, no decreased breath sounds, no stridor, no wheezing. 01:35 Abdomen/GI: Inspection: abdomen appears normal, Bowel sounds: active, all quadrants, Palpation: soft, in all quadrants, severe abdominal tenderness, in the right lower quadrant and left lower quadrant, rebound tenderness, is not appreciated, voluntary guarding, is elicited in the right lower quadrant and left lower quadrant. 01:35 Back: pain, that is moderate, of the low back area, ROM is painful, with all movement. 03:07 : Pelvic Exam: External exam: is normal, Speculum exam: no bleeding is noted, os that cp is closed, bimanual exam reveals cervical motion tenderness, uterine tenderness, right adnexal tenderness, left adnexal tenderness, discharge, yellow, the nurse was present for the exam, Sexual behavior: the patient is sexually active, history of gonorrhea and Chlamydia infection in the past. Vital Signs: 00:50 BP 144 / 89; Pulse 100; Resp 20; Temp 98.9; Pulse Ox 100% on R/A; Weight 79.38 kg; dc2 Height 5 ft. 4 in. (162.56 cm); Pain 10/10; 00:50 BP 144 / 89; Pulse 100; Resp 20; Temp 98.9; Pulse Ox 100% ; Weight 79.38 kg; Height 5 dc2 ft. 9 in. (175.26 cm); Pain 10/10; 01:45 BP 128 / 77; Pulse 89; Resp 18; Pulse Ox 100% ; Pain 8/10; dc2 02:30 BP 112 / 70; Pulse 96; Resp 18; Pulse Ox 100% ; Pain 10/10; dc2 03:15 BP 121 / 77; Pulse 111; Resp 17; Pulse Ox 100% ; Pain 10/10; dc2 04:06 BP 125 / 74; Pulse 107; Resp 23; Temp 98.9(O); Pulse Ox 100% on R/A; cc4 00:50 Body Mass Index 25.84 (79.38 kg, 175.26 cm) dc2 MDM: 00:49 Patient medically screened. cp 02:00 Differential diagnosis: appendicitis, diverticulitis, Ovarian Torsion, Pelvic cp Inflammatory Disease, Pyelonephritis, Ureterolithiasis, urinary tract infection. 03:20 Data reviewed: vital signs, nurses notes, lab test result(s). cp 03:20 Transition of care: After a detail discussion of the patient's case, care is cp transferred to Tl Lopez MD. ED course: awaiting results of CT abdomen/pelvis. 04:06 ED course: Patient feeling better. Discussed lab and imaging studies with patient. pkl Advised to follow up with PCP/ Airfreight Operations Agent in 2 to 3 days. Patient understood instructions. 03/30 01:20 Order name: Basic Metabolic Panel 03/30 01:20 Order name: CBC with Diff cp 03/30 01:20 Order name: Hepatic Function cp 03/30 01:20 Order name: Lipase cp 03/30 01:20 Order name: Urine Microscopic Only; Complete Time: 02:22 cp 03/30 02:22 Interpretation: Normal except: UWBC 10-20; URBC 5-10; UBACT >50; SQEPI 10-20; MUCUS 3+. cp 03/30 01:20 Order name: Basic Metabolic Panel; Complete Time: 02:22 EDMS 03/30 02:22 Interpretation: Normal except: GLUC 107. cp 03/30 01:20 Order name: CBC with Automated Diff; Complete Time: 02:22 EDMS 03/30 02:22 Interpretation: Normal except: HGB 8.7; HCT 28.6; MCV 62.3; MCH 18.9; MCHC 30.3; RDW cp 18.2; SIVAKUMAR% 76.1; LYM% 15.1. 03/30 01:20 Order name: Liver (Hepatic) Function; Complete Time: 02:22 EDMS 03/30 01:20 Order name: Lipase; Complete Time: 02:22 EDMS 03/30 01:48 Order name: CBC Smear Scan; Complete Time: 02:22 EDMS 03/30 01:58 Order name: CREATININE WHOLE BLOOD; Complete Time: 02:22 EDMS 03/30 02:02 Order name: Urine Culture EDMS 03/30 02:03 Order name: Urine Dipstick-Ancillary; Complete Time: 02:22 EDMS 03/30 02:22 Interpretation: Normal except: UKET Trace; UPROT 1+; UESTR Trace. cp 03/30 02:08 Order name: Uric Acid oe 03/30 01:20 Order name: IV Saline Lock; Complete Time: 01:35 cp 03/30 01:20 Order name: Labs collected and sent; Complete Time: 02:20 cp 03/30 01:20 Order name: Urine Dipstick-Ancillary (obtain specimen); Complete Time: 03:00 cp 03/30 01:20 Order name: Urine Test (obtain specimen); Complete Time: 03:00 cp 03/30 01:20 Order name: CT Abd/Pelvis - IV Contrast Only cp 03/30 02:08 Order name: Urine --Ancillary (enter results); Complete Time: 02:22 oe 03/30 02:09 Order name: Uric Acid; Complete Time: 03:52 EDMS 03/30 02:25 Order name: GC (GONORR/CHLAMYDIA) Probe cp 03/30 02:25 Order name: Wet Prep; Complete Time: 03:52 cp 03/30 02:25 Order name: Pelvic Exam Setup; Complete Time: 03:24 cp Administered Medications: 04:39 Discontinued: NS 0.9% 1000 ml IV at 1 bolus Per protocol; 1000 mL bolus cc4 01:20 CANCELLED (Physician Discretion): Ketorolac 15 mg IVP once cp 01:34 Drug: morphine 2 mg Route: IVP; Site: right antecubital; dc2 02:00 Follow up: Response: No adverse reaction; Pain is unchanged, physician notified cc4 02:19 Follow up: Response: Pain is decreased dc2 01:34 Drug: morphine 2 mg Route: IVP; Site: right antecubital; cc4 01:35 Drug: NS 0.9% 1000 ml Route: IV; Rate: 1 bolus; Site: right antecubital; dc2 02:35 Follow up: IV Status: Completed infusion; IV Intake: 1000ml dc2 04:06 Follow up: Response: No adverse reaction; Rate change 1000 bolus cc4 01:35 Drug: Zofran (Ondansetron) 4 mg Route: IVP; Site: right antecubital; dc2 02:19 Follow up: Response: Nausea is decreased dc2 02:59 Drug: fentaNYL (PF) 25 mcg Route: IVP; Site: right antecubital; dc2 03:20 Follow up: Response: Pain is unchanged, physician notified dc2 03:56 Follow up: Response: Pain is decreased dc2 04:06 Follow up: Urine output 350 ml; Response: No adverse reaction; Pain is decreased cc4 03:17 Drug: Rocephin (cefTRIAXone) 1 grams Route: IV; Rate: calculated rate; Site: right dc2 antecubital; 03:50 Follow up: Response: No adverse reaction dc2 04:06 Follow up: Response: No adverse reaction; Pain is decreased cc4 03:24 Drug: Ketorolac 15 mg Route: IVP; Site: right antecubital; dc2 04:06 Follow up: Response: No adverse reaction; Pain is decreased cc4 Disposition: 04:06 Co-signature as Attending Physician, Tl Lopez MD. pkl Disposition Summary: 03/30/21 04:10 Discharge Ordered Location: Home pkl Problem: new pkl Symptoms: have improved pkl Condition: Stable pkl Diagnosis - Abdominal pain. Diverticulitis. Pelvic inflammatory disease. UTI. Anemia pkl Followup: pkl - With: Private Physician - When: 2 - 3 days - Reason: Re-evaluation by your physician Discharge Instructions: - Discharge Summary Sheet cp Forms: - Medication Reconciliation Form pkl - Thank You Letter pkl - Antibiotic Education pkl - Prescription Opioid Use pkl Prescriptions: - Metronidazole 500 mg Oral Tablet - take 1 tablet by ORAL route every 8 hours; 30 tablet; Refills: 0, Product cp Selection Permitted - Doxycycline Monohydrate 100 mg Oral Tablet - take 1 tablet by ORAL route every 12 hours for 10 days; 20 tablet; Refills: 0, cp Product Selection Permitted Signatures: Dispatcher [facility] Tl Nina MD MD pkl Jaiden Patterson PA PA cp Cooper, Christie, RN RN cc4 AnibalEmily allen RN RN dc2 Corrections: (The following items were deleted from the chart) 01:20 01:20 Ketorolac 15 mg IVP once ordered. cp cp 02:04 02:02 Home Meds: Ranitidine Oral; dc2 dc2 02:04 02:02 Home Meds: Zyrtec Oral; dc2 dc2 02:04 02:02 Home Meds: Zantac 150 mg Oral tab 1 tab once daily; dc2 dc2 03/31 00:07 03/30 01:30 Abdomen/GI: Positive for abdominal pain, Negative for vomiting, diarrhea, cp constipation, cp
--- NOTE | 2021-03-30 04:11 | ER ---
Nurse's Notes [facility] Name: Awa Walker Age: 20 yrs Sex: Female : 2000 Arrival Date: 03/30/2021 Time: 00:45 Bed 30 Private MD: Diagnosis: Abdominal pain. Diverticulitis. Pelvic inflammatory disease. UTI. Anemia Presentation: 03/30 00:50 Chief complaint: Patient states: Abdominal pain that wraps around to both sides with dc2 nausea since Thursday. 00:50 Coronavirus screen: Vaccine status: Patient reports being unvaccinated. Client denies dc2 travel out of the [place] in the last 14 days. nausea, vomiting. At this time, the client does not indicate any symptoms associated with coronavirus-19. Ebola Screen: Patient negative for fever greater than or equal to 101.5 degrees Fahrenheit, and additional compatible Ebola Virus Disease symptoms Patient denies exposure to infectious person. Patient denies travel to an Ebola-affected area in the 21 days before illness onset. No symptoms or risks identified at this time. Initial Sepsis Screen: Does the patient meet any 2 criteria? No. Patient's initial sepsis screen is negative. Risk Assessment: Do you want to hurt yourself or someone else? Patient reports no desire to harm self or others. Onset of symptoms was February 24, 2021. 00:50 Method Of Arrival: Ambulatory dc2 00:50 Acuity: JILLIAN 3 dc2 01:00 Initial Sepsis Screen: Does the patient have a suspected source of infection? No. dc2 Patient's initial sepsis screen is negative. Triage Assessment: 00:50 General: Appears uncomfortable, obese, well developed, Behavior is cooperative, dc2 restless. Pain: Complains of pain in abdomen that wraps around to both sides, describes as stabbing since Thursday or Thursday. Neuro: No deficits noted. Respiratory: No deficits noted. Breath sounds are clear bilaterally. GI: Abdomen is Last BM was February 27, 2021. Bowel sounds present X 4 quads. Reports lower abdominal pain, nausea, normal bowel habits, Pain is 10 out of 10 on a pain scale. : No signs and/or symptoms were reported regarding the genitourinary system. Urine is clear. Musculoskeletal: No deficits noted. No signs and/or symptoms reported regarding the musculoskeletal system. 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 Last tetanus immunization: up to date. - Social history:: Smoking status: Patient denies any tobacco usage or history of. Patient/guardian denies using street drugs, tobacco products. Screenin:00 Abuse screen: Denies threats or abuse. Denies injuries from another. Nutritional dc2 screening: No deficits noted. Tuberculosis screening: No symptoms or risk factors identified. Never had TB. Possible symptoms: None. Fall Risk None identified. No fall in past 12 months (0 pts). No secondary diagnosis (0 pts). No IV (0 pts). Ambulatory Aid- None/Bed Rest/Nurse Assist (0 pts). Gait- Normal/Bed Rest/Wheelchair (0 pts) Mental Status- Oriented to own ability (0 pts). Assessment: 00:50 General: Appears in no apparent distress. uncomfortable, obese, well groomed, well dc2 developed, Behavior is cooperative, restless. Pain: Complains of pain in abdominal pain that wraps around both sides. 00:50 Neuro: No deficits noted. Cardiovascular: No deficits noted. Respiratory: Airway is dc2 patent Denies shortness of breath. GI: Abdomen is round non-distended, obese, Last BM was February 28, 2120. Bowel sounds present X 4 quads. Abd is soft X 4 quads. : No deficits noted. No signs and/or symptoms were reported regarding the genitourinary system. Urine is Denies burning with urination, pain urinary frequency, urgency. Musculoskeletal: No deficits noted. 01:34 Reassessment: No changes from previously documented assessment. Continues to c/o lower cc4 abd. pain that radiates into back; IV NS started right AC with # 20 g angiocath x 1 attempt \\T\\ bolus rate, christopher. well; blood collected \\T\\ sent to lab; urine specimen obtained per Clean catch voided specimen with dip/UPT completed; UPT negative; zofran 4 mg \\T\\ morphine 2 mg given slow IVP as ordered. 02:59 Reassessment: Pt return from CT crying in pain, Jaiden at bedside, order for fentany dc2 25mcg to be given. 03:00 Reassessment: No changes from previously documented assessment. Assisted HOLLY Trujillo cc4 with pelvic exam; cultures obtained of heavy vaginal discharge per Mariana Patterson RN \\T\\ sent to lab. 04:00 Reassessment: Dr. Lopez in assessing pt with discharge instructions given, v/u; reports cc4 decreasing abd. pain "2" on pain scale;. 04:06 Reassessment: Patient appears in no apparent distress at this time. IV d/c'd with cath cc4 intact \\T\\ bleeding controlled with pressure dsg applied; voices no c/o pain; discharged home with family member; NAD. Vital Signs: 00:50 BP 144 / 89; Pulse 100; Resp 20; Temp 98.9; Pulse Ox 100% on R/A; Weight 79.38 kg; dc2 Height 5 ft. 4 in. (162.56 cm); Pain 10/10; 00:50 BP 144 / 89; Pulse 100; Resp 20; Temp 98.9; Pulse Ox 100% ; Weight 79.38 kg; Height 5 dc2 ft. 9 in. (175.26 cm); Pain 10/10; 01:45 BP 128 / 77; Pulse 89; Resp 18; Pulse Ox 100% ; Pain 8/10; dc2 02:30 BP 112 / 70; Pulse 96; Resp 18; Pulse Ox 100% ; Pain 10/10; dc2 03:15 BP 121 / 77; Pulse 111; Resp 17; Pulse Ox 100% ; Pain 10/10; dc2 04:06 BP 125 / 74; Pulse 107; Resp 23; Temp 98.9(O); Pulse Ox 100% on R/A; cc4 00:50 Body Mass Index 25.84 (79.38 kg, 175.26 cm) dc2 ED Course: 00:45 Patient arrived in ED. ja2 00:48 Jaiden Patterson PA is PHCP. cp 00:48 Tl Lopez MD is Attending Physician. cp 01:00 brush filler hand on. Pulse ox on. NIBP on. Lights dimmed. Warm blanket given. Verbal dc2 reassurance given. Diet: Patient is NPO. 01:00 Arm band placed on right wrist. dc2 01:00 Patient has correct armband on for positive identification. Allergy band placed. Placed dc2 in gown. Bed in low position. Call light in reach. Side rails up X 1. brush filler hand on. Pulse ox on. NIBP on. Door closed. Lights dimmed. Warm blanket given. 01:16 Daisha Jean, RN is Primary Nurse. cc4 01:30 Inserted saline lock: 20 gauge in right antecubital area, using aseptic technique. dc2 Blood collected. 01:35 Basic Metabolic Panel Sent. dc2 01:35 CBC with Diff Sent. dc2 01:35 Hepatic Function Sent. dc2 01:35 Lipase Sent. dc2 01:35 Lipase Sent. dc2 01:35 Basic Metabolic Panel Sent. dc2 01:36 Liver (Hepatic) Function Sent. dc2 01:43 Triage completed. dc2 02:18 Uric Acid Sent. dc2 02:[address] via stretcher. dc2 02:47 CT Abd/Pelvis - IV Contrast Only In Process Unspecified. EDMS 02:58 Patient moved back from CT. dc2 03:10 Assist provider with pelvic exam: Set up pelvic tray. Performed by Daisha Jean RN dc2 Specimens sent to lab. 03:52 GC (GONORR/CHLAMYDIA) Probe Sent. cc4 04:20 IV discontinued, intact, bleeding controlled, No redness/swelling at site. Pressure dc2 dressing applied. Administered Medications: 04:39 Discontinued: NS 0.9% 1000 ml IV at 1 bolus Per protocol; 1000 mL bolus cc4 01:20 CANCELLED (Physician Discretion): Ketorolac 15 mg IVP once cp 01:34 Drug: morphine 2 mg Route: IVP; Site: right antecubital; dc2 02:00 Follow up: Response: No adverse reaction; Pain is unchanged, physician notified cc4 02:19 Follow up: Response: Pain is decreased dc2 01:34 Drug: morphine 2 mg Route: IVP; Site: right antecubital; cc4 01:35 Drug: NS 0.9% 1000 ml Route: IV; Rate: 1 bolus; Site: right antecubital; dc2 02:35 Follow up: IV Status: Completed infusion; IV Intake: 1000ml dc2 04:06 Follow up: Response: No adverse reaction; Rate change 1000 bolus cc4 01:35 Drug: Zofran (Ondansetron) 4 mg Route: IVP; Site: right antecubital; dc2 02:19 Follow up: Response: Nausea is decreased dc2 02:59 Drug: fentaNYL (PF) 25 mcg Route: IVP; Site: right antecubital; dc2 03:20 Follow up: Response: Pain is unchanged, physician notified dc2 03:56 Follow up: Response: Pain is decreased dc2 04:06 Follow up: Urine output 350 ml; Response: No adverse reaction; Pain is decreased cc4 03:17 Drug: Rocephin (cefTRIAXone) 1 grams Route: IV; Rate: calculated rate; Site: right dc2 antecubital; 03:50 Follow up: Response: No adverse reaction dc2 04:06 Follow up: Response: No adverse reaction; Pain is decreased cc4 03:24 Drug: Ketorolac 15 mg Route: IVP; Site: right antecubital; dc2 04:06 Follow up: Response: No adverse reaction; Pain is decreased cc4 Intake: 02:35 IV: 1000ml; Total: 1000ml. dc2 Output: 04:06 Urine: 350ml; Total: 350ml. cc4 Outcome: 04:10 Discharge ordered by . josse 04:19 Discharged to home ambulatory. dc2 04:19 Condition: good 04:19 Discharge instructions given to Instructed on discharge instructions, follow up and referral plans. Demonstrated understanding of instructions, follow-up care. 04:30 Patient left the ED. dc2 Signatures: Dispatcher [employer] EDMS Tl Lopez MD MD pkl Page, Corey, PA PA cp Alexander, Jessica ja Daisha Jean RN RN cc4 Emily Barnett RN RN dc2 Corrections: (The following items were deleted from the chart) 02:04 02:02 Home Meds: Ranitidine Oral; dc2 dc2 02:04 02:02 Home Meds: Zyrtec Oral; dc2 dc2 02:04 02:02 Home Meds: Zantac 150 mg Oral tab 1 tab once daily; dc2 dc2 03:11 02:00 No provider procedures requiring assistance completed. dc2 dc2 04:32 03:00 Reassessment: Patient appears in no apparent distress at this time. No changes cc4 from previously documented assessment. HOLLY Trujillo in \\T\\ assisted with with vaginal exam with heavy light yellow vaginal discharge noted and cultures obtained per Mariana Patterson,HOLLY \\T\\ sent to lab. cc4 04:06 Reassessment: Patient appears in no apparent distress at this time. cc4 cc4 04:06 Reassessment: cc4 cc4
[2021-03-30 04:37] VITALS: TEMP 98.9; O2SAT 100
[2021-03-30 04:43] VITALS: BP 125/74
--- NOTE | 2021-03-30 21:48 | RAD REPORT ---
EXAM DESCRIPTION: CT Abdomen and Pelvis With Intravenous Contrast CLINICAL HISTORY: The patient is 20 years old and is Female; lower abdomen pain TECHNIQUE: Axial computed tomography images of the abdomen and pelvis with intravenous contrast. S agittal and coronal reformatted images were created and reviewed. This CT exam was performed using one or more of the following dose reduction techniques: automated exposure control, adjustment of t he mA and/or kV according to patient size, and/or use of iterative reconstruction technique. COMPARISON: CT abdomen and pelvis November 18, 2019 FINDINGS: Lung bases: Unremarkable. No mass. No consolidation. ABDOMEN: Liver: Unremarkable. No mass. Gallbladder and bile ducts: Unremarkable. No calcified stones. No ductal dilation. Pancreas: Unremarkable. No mass. No ductal dilation. Spleen: Mild splenomegaly. Adrenals: Unremarkable. No mass. Kidneys and ureters: Unremarkable. No solid mass. No hydronephrosis. Stomach and bowel: Mild fat stranding around a segment of the small bowel in the lower abdomen. No obstruction. No mucosal thickening. PELVIS: Appendix: No findings to suggest acute appendicitis. Bladder: Unremarkable. No mass. Reproductive: Unremarkable as visualized. ABDOMEN and PELVIS: Intraperitoneal space: Unremarkable. No free air. No significant fluid collection. Bones/joints: No acute fracture. No dislocation. Soft tissues: Unremarkable. Vasculature: Unremarkable. No abdominal aortic aneurysm. Lymph nodes: Unremarkable. No enlarged lymph nodes. IMPRESSION: Mild fat stranding around a segment of the small bowel in the lower abdomen. Findings can be seen with enteritis and small bowel diverticulitis. Electronically signed by: Michael Jiang MD 03/30/2021 3:46 AM CDT Due to temporary technical issues with the PACS/Fluency reporting system, reports are being signed by the in house radiologists without review as a courtesy to insure prompt reporting. The interpreting radiologist is fully responsible for the content of the report.
[2021-04-03 00:37] LABS: C.trachomatis RNA,TMA Not Detected (Not Detected)
== END 2021-03-30 04:30 | disposition home or self-care (01) ==
LOC: ER 00:42
DX: K57.12 Diverticulitis of small intestine without perforation or abscess without bleeding (principal); N39.0 Urinary tract infection, site not specified; N73.9 Female pelvic inflammatory disease, unspecified; D64.9 Anemia, unspecified; Z88.8 Allergy status to other drugs, medicaments and biological substances
CPT/HCPCS: 36415; 74177; 80048; 80076; 81003; 81015; 81025; 82565; 83690; 84550; 85025; 87086; 87088; 87210; 87490; 87590; 96361; 96374; 96375; 99285; J2270; J2405; J3010; J7030; Q9967

== ENCOUNTER 2021-07-27 10:45 | Emergency (ER) | payer SELFPAY ==
--- OUTSIDE RECORDS SUMMARY | 2021-07-27 10:48 | XMS REPORT | Continuity of Care Document ---
:2000 Author Organization [facility] t Address [address] [place] [address] [address] [place] [address] Care Team Providers Name Role Phone Unavailable Unavailable Unavailable Problems This patient has no known problems. Allergies, Adverse Reactions, Alerts Allergy Allergy Status Severity Reaction(s) Onset Inactive Treating Comm ents Source Name Type Date Date Clinician OSELTAMI DRUG Active Unknown-Cmnt Un lewis FLORENTINOI -19 ity of [facility] 00:00: [address] Medications This patient has no known medications. Procedures This patient has no known procedures. Encounters Start End Encounter Admission Attending Care Care Encounter Source Date/Time Date/Time Type Type Clinicians Facility Department ID 2020-04-03 2020-04-03 Outpatient [facility] [id number] -20 [facility] 10:15:00 10:15:00 [id number] ity of [facility] Results This patient has no known results.
[2021-07-27] MEDS ORDERED: ONDANSETRON 4 MG/2 ML VIAL ONE (11:12)
[2021-07-27] MEDS ORDERED: NA CHLORIDE 0.9% 1,000 ML ONE (11:12)
[2021-07-27 11:20] LABS: Absolute Lymphocytes (CBC) 0.2 K/uL (0.7-4.9); Hematocrit 29.4 % (36.0-45.0); Lymphocytes % 2.2 % (15.3-44.8); MPV 8.5 fL (7.6-11.3); RBC Red Blood Cell Count 4.84 M/uL (3.86-4.86)
[2021-07-27 11:33] LABS: Bilirubin Direct 0.1 mg/dL (0-0.2); Bilirubin Total 0.5 mg/dL (0.2-1.0); Potassium 3.8 mmol/L (3.5-5.1); Protein, Total 7.9 g/dL (6.4-8.2)
[2021-07-27 11:46] LABS: Anisocytosis 2+; Blood Morphology Comment NOTED (NOT SEEN); Hypochromasia 3+; Platelet Estimate ADEQ; Polychromasia 1+; White Blood Cell Scan OK (OK)
[2021-07-27 13:01] LABS: SARS-COV-2 RT PCR POSITIVE (NEGATIVE)
[2021-07-27] MEDS ORDERED: PROMETHAZINE 25 MG TABLET ONE (13:10)
--- NOTE | 2021-07-27 13:12 | ER ---
Nurse's Notes [facility] Name: Awa Walker Age: 20 yrs Sex: Female : 2000 Arrival Date: 07/27/2021 Time: 10:46 Bed 14 Private MD: Diagnosis: Coronavirus infection, unspecified Presentation: 07/27 10:58 Chief complaint: Patient states: unable to stop vimiting and diarrhea since 3am, im jh5 cold, and dehydrated, body aches. Coronavirus screen: Vaccine status: Patient reports being unvaccinated. Client denies travel out of the [place] in the last 14 days. Ebola Screen: Patient negative for fever greater than or equal to 101.5 degrees Fahrenheit, and additional compatible Ebola Virus Disease symptoms Patient denies exposure to infectious person. Patient denies travel to an Ebola-affected area in the 21 days before illness onset. Initial Sepsis Screen: Does the patient meet any 2 criteria? No. Patient's initial sepsis screen is negative. Does the patient have a suspected source of infection? No. Patient's initial sepsis screen is negative. Risk Assessment: Do you want to hurt yourself or someone else? Patient reports no desire to harm self or others. Onset of symptoms was July 27, 2021. 10:58 Method Of Arrival: Ambulatory [facility] 10:58 Acuity: JILLIAN 3 5 Triage Assessment: 11:01 General: Appears distressed, uncomfortable, Behavior is calm, cooperative. Pain: [facility] Complains of pain in abdomen. GI: Reports lower abdominal pain, upper abdominal pain, diarrhea, vomiting. 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 - Social history:: Smoking status: Patient denies any tobacco usage or history of. Screenin:15 Abuse screen: Denies threats or abuse. Denies injuries from another. Nutritional ic1 screening: No deficits noted. Tuberculosis screening: No symptoms or risk factors identified. Fall Risk None identified. Assessment: 11:15 General: Appears in no apparent distress. uncomfortable, Behavior is anxious, crying. ic1 Pain: Complains of pain in abdomen. Neuro: Level of Consciousness is awake, alert, obeys commands, Oriented to person, place, time, situation. Cardiovascular: Rhythm is sinus tachycardia. GI: Abdomen is round non-distended, Reports lower abdominal pain, upper abdominal pain, cramping, diarrhea, nausea, vomiting. : No deficits noted. Vital Signs: 10:58 BP 127 / 72; Pulse 101; Resp 18; Temp 98.9; Pulse Ox 100% ; Weight 77.11 kg; Height 5 [facility] ft. 4 in. (162.56 cm); Pain 10/10; 12:22 BP 94 / 60; Pulse 82; Resp 16; Pulse Ox 96% on R/A; narvaez 12:49 BP 116 / 65; Pulse 88; Resp 16; Pulse Ox 100% on R/A; ic1 10:58 Body Mass Index 29.18 (77.11 kg, 162.56 cm) [facility] ED Course: 10:46 Patient arrived in ED. am2 10:53 Gertrudis Augustin [facility]C [facility] kb 10:53 Kirit Paulson MD is Attending Physician. kb 11:01 Triage completed. [facility] 11:01 Arm band placed on. [facility] 11:02 Esha Haji, RN is Primary Nurse. ic1 11:15 Patient has correct armband on for positive identification. Placed in gown. Bed in low ic1 position. Side rails up X2. 11:15 Inserted saline lock: 20 gauge in left antecubital area, using aseptic technique. Blood ic1 collected. 11:18 Door closed. Noise minimized. Warm blanket given. ic1 12:26 COVID-19/FLU A+B (Document "Date of Onset" if Symptomatic) Sent. cs9 12:29 No provider procedures requiring assistance completed. narvaez 13:17 IV discontinued, intact, bleeding controlled, No redness/swelling at site. Pressure ic1 dressing applied. Administered Medications: 11:15 Drug: NS 0.9% 1000 ml Route: IV; Rate: 1000 ml; Site: left antecubital; ic1 13:01 Follow up: IV Status: Completed infusion; IV Intake: 1000ml ic1 11:15 Drug: Zofran (Ondansetron) 4 mg Route: IVP; Site: left antecubital; ic1 13:11 Drug: Phenergan (promethazine) 25 mg Route: PO; ic1 Intake: 13:01 IV: 1000ml; Total: 1000ml. ic1 Outcome: 13:12 Discharge ordered by . almas 13:17 Discharged to home ambulatory, with family. ic1 13:17 Condition: stable 13:17 Discharge instructions given to patient, Instructed on discharge instructions, follow up and referral plans. Demonstrated understanding of instructions, follow-up care, medications, Prescriptions given X 2. 13:17 Patient left the ED. ic1 Signatures: Gertrudis Augustin, JUAN DAVID RODRIGUEZ-Eleni Vo Christine 9 Shae Moran RN RN jh5 Salina Yepez RN RN narvaez Esha Haji RN RN ic1
--- NOTE | 2021-07-27 13:12 | EDPHYS ---
Physician Documentation [facility] Name: Awa Walker Age: 20 yrs Sex: Female : 2000 Arrival Date: 07/27/2021 Time: 10:46 Bed 14 Private MD: ED Physician Kirit Paulson HPI: 07/27 11:58 This 20 yrs old Female presents to ER via Ambulatory with complaints of kb Vomiting/Diarrhea. 11:58 The patient presents to the emergency department with nausea, vomiting, diarrhea. kb Onset: The symptoms/episode began/occurred this morning, at 03:00. Possible causes: unknown. The symptoms are aggravated by nothing. The symptoms are alleviated by nothing. Associated signs and symptoms: Pertinent positives: diarrhea, nausea, vomiting, Pertinent negatives: fever. Severity of symptoms: At their worst the symptoms were moderate in the emergency department the symptoms are unchanged. The patient has not experienced similar symptoms in the past. The patient has not recently seen a physician. Pt reports bodyaches, chills, n/v/d that started at 0300. Denies sick contacts.. 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 - Social history:: Smoking status: Patient denies any tobacco usage or history of. ROS: 11:58 Constitutional: Negative for fever, chills, and weight loss, ENT: Negative for injury, kb pain, and discharge, Cardiovascular: Negative for chest pain, palpitations, and edema, Respiratory: Negative for shortness of breath, cough, wheezing, and pleuritic chest pain, MS/Extremity: Negative for injury and deformity, Skin: Negative for injury, rash, and discoloration, Neuro: Negative for headache, weakness, numbness, tingling, and seizure, Psych: Negative for depression, anxiety, suicide ideation, homicidal ideation, and hallucinations. 11:58 Abdomen/GI: Positive for abdominal pain, nausea, vomiting, and diarrhea. Exam: 11:58 Constitutional: This is a well developed, well nourished patient who is awake, alert, kb and in no acute distress. Head/Face: Normocephalic, atraumatic. ENT: Moist Mucous membranes Cardiovascular: Regular rate and rhythm with a normal S1 and S2. No gallops, murmurs, or rubs. No pulse deficits. Respiratory: Respirations even and unlabored. No increased work of breathing. Talking in full sentences Skin: Warm, dry with normal turgor. Normal color. MS/ Extremity: Pulses equal, no cyanosis. Neurovascular intact. Full, normal range of motion. Neuro: Awake and alert, GCS 15, oriented to person, place, time, and situation. Moves all extremities. Normal gait. Psych: Awake, alert, with orientation to person, place and time. Behavior, mood, and affect are within normal limits. 11:58 Abdomen/GI: Inspection: abdomen appears normal, Bowel sounds: normal, in all quadrants, Palpation: soft, in all quadrants, mild abdominal tenderness, in all quadrants. Vital Signs: 10:58 BP 127 / 72; Pulse 101; Resp 18; Temp 98.9; Pulse Ox 100% ; Weight 77.11 kg; Height 5 jh5 ft. 4 in. (162.56 cm); Pain 10/10; 12:22 BP 94 / 60; Pulse 82; Resp 16; Pulse Ox 96% on R/A; narvaez 12:49 BP 116 / 65; Pulse 88; Resp 16; Pulse Ox 100% on R/A; ic1 10:58 Body Mass Index 29.18 (77.11 kg, 162.56 cm) jh5 MDM: 11:00 Patient medically screened. 12:00 Data reviewed: vital signs, nurses notes. Data interpreted: Pulse oximetry: on room air kb is 100 %. Interpretation: normal. 13:07 Counseling: I had a detailed discussion with the patient and/or guardian regarding: the kb historical points, exam findings, and any diagnostic results supporting the discharge/admit diagnosis, lab results, the need for outpatient follow up, a family practitioner, to return to the emergency department if symptoms worsen or persist or if there are any questions or concerns that arise at home. 07/27 11:00 Order name: Basic Metabolic Panel; Complete Time: 11:34 kb 07/27 11:00 Order name: CBC with Diff; Complete Time: 11:58 kb 07/27 11:00 Order name: Hepatic Function; Complete Time: 11:34 kb 07/27 11:00 Order name: Lipase; Complete Time: 11:34 kb 07/27 11:00 Order name: COVID-19/FLU A+B (Document "Date of Onset" if Symptomatic); Complete Time: kb 13:07 07/27 11:28 Order name: CBC Smear Scan; Complete Time: 11:58 EDAR 07/27 11:00 Order name: IV Saline Lock; Complete Time: 11:09 kb 07/27 11:00 Order name: Labs collected and sent; Complete Time: 11:15 kb 07/27 11:00 Order name: Urine Dipstick-Ancillary (obtain specimen) kb 07/27 11:00 Order name: Urine Test (obtain specimen) kb Administered Medications: 11:15 Drug: NS 0.9% 1000 ml Route: IV; Rate: 1000 ml; Site: left antecubital; ic1 13:01 Follow up: IV Status: Completed infusion; IV Intake: 1000ml ic1 11:15 Drug: Zofran (Ondansetron) 4 mg Route: IVP; Site: left antecubital; ic1 13:11 Drug: Phenergan (promethazine) 25 mg Route: PO; ic1 Disposition: 15:00 Co-signature as Attending Physician, Kirit Paulson MD. rn Disposition Summary: 07/27/21 13:12 Discharge Ordered Location: Home kb Condition: Stable kb Diagnosis - Coronavirus infection, unspecified kb Followup: kb - With: Emergency Department - When: As needed - Reason: Worsening of condition Followup: kb - With: Private Physician - When: 2 - 3 days - Reason: Recheck today's complaints, Continuance of care, Re-evaluation by your physician Discharge Instructions: - Discharge Summary Sheet kb - Viral Respiratory Infection, [id number] kb - COVID-19 kb Forms: - Medication Reconciliation Form kb - Thank You Letter kb - Antibiotic Education kb - Prescription Opioid Use kb Prescriptions: - Zofran 4 mg Oral Tablet - take 1 tablet by ORAL route every 6 hours As needed; 20 tablet; Refills: 0, kb Product Selection Permitted - dicyclomine 20 mg Oral Tablet - take 1 tablet by ORAL route 4 times per day As needed; 20 tablet; Refills: 0, kb Product Selection Permitted Signatures: Dispatcher [employer] [facility] Gertrudis Augustin, JENNIFERC JENNIFER-Kirit Lemons MD MD rn Rees, Jessica, RN RN jh5 Creggett, Esha, RN RN ic1
[2021-07-27 13:38] VITALS: TEMP 98.9
[2021-07-27 13:42] VITALS: BP 116/65; O2SAT 100
== END 2021-07-27 13:17 | disposition home or self-care (01) ==
LOC: ER 10:45
DX: U07.1 COVID-19 (principal); Z88.8 Allergy status to other drugs, medicaments and biological substances
CPT/HCPCS: 0240U; 36415; 80048; 80076; 83690; 85025; 96361; 96374; 99284; J2405; J7030; Q0169